=== PATIENT | female | born 1960 | race Caucasian/White ===

== ENCOUNTER 2024-02-24 06:05 | Outpatient (CLI) | payer MEDICARE, SELFPAY ==
--- NOTE | 2024-02-24 06:06 | CA_ITS ---
APPROVED REPORT EXAM: Comprehensive 2D, Doppler, and color-flow Echocardiogram Software Quality Specialist: Kaylene Contreras RT(R) Ht: 5 ft 6 in Wt: 152lbs BSA: 1.78 BP: 147/81 mmHg Indications: SOA, CAD, abn EKG, smoker, epicardial cyst on CT scan. 2D Dimensions Left Atrium 2.78 cm F: 2.7 - 3.8 LVOT 2.04 cm (M/F) 1.5-2.5 M-Mode Dimensions RVDd 1.67 cm (0.9-2.6) LVDd 4.45 cm (3.5-5.7) Ao Diam 2.40 cm (2.0-3.7) LVDs 3.34 cm (3.5-5.7) IVSd 0.91 cm (0.6-1.1) PWd 0.80 cm (0.6-1.1) EF (Teich) 49.60% FS 24.90% EDV (Teich) 90.10 mL ESV (Teich) 45.40 mL LV Diastology E Decel Time 231 (160-240 msec) E/A Ratio 1.2 MED E' 7.2 (>= 7 cm/sec) E'/MED E' Ratio 10.72 (<= 14) LAT E' 8.1 (>= 10 cm/sec) E/LAT E' Ratio 9.53 (<= 14) Mitral Valve MV E Max Rory. 77.0 (40-130 cm/s) MV A Velocity 64.0 (40-130 cm/s) E/A Ratio 1.20 MV Decel. Time 231 (160-240 ms) Left Ventricle The left ventricle is normal size. The left ventricular systolic function is normal. The left ventricular ejection fraction is within the normal range. There is increased LV wall thickness. There is normal LV segmental wall motion. The left ventricular diastolic function is normal. LVEF is 55%. Right Ventricle The right ventricle is not well visualized. Atria The left atrium size is normal. The right atrium is not well visualized. Aortic Valve The aortic valve is mildly thickened. There is no aortic valvular stenosis. No aortic regurgitation is present. Mitral Valve The mitral valve is normal in structure. No evidence of mitral valve stenosis. There is no mitral valve regurgitation noted. Tricuspid Valve The tricuspid valve leaflets are thin and pliable. Trace tricuspid regurgitation. There is insufficient TR jet to estimate RVSP. Pulmonic Valve The pulmonary valve is not well visualized. Great Vessels The aortic root is normal in size. The ascending aorta is normal in size. IVC is normal in size and collapses >50% with inspiration. Pericardium There is a small-sized, anterior pericardial effusion. Largest pocket measures 0.5 cm in diastole. No echo indications of tamponade. Other Information Study Quality: Technically Difficult Conclusion Technically difficult study due to poor accoustic windows. Normal LV systolic function. RA/RV not well visualized. No significant valvular stenosis or regurgitation. Small-sized, anterior pericardial effusion. Largest pocket measures 0.5 cm in diastole. No echo indications of tamponade. Electronically signed by : Maggy Diana MD 02/25/2024 14:03:29
--- NOTE | 2024-02-24 06:10 | NM_ITS ---
APPROVED REPORT Exam: Nuclear Stress Test Indication: SOB, High cholesterol, Tobacco use, Family history Patient Location: Outpatient Stress Tech: Tg GUZMÁN Tech:Candy Varma, ARRT, RT (R)(N) Ht: 5 ft 6 in Wt: 155 lbs Bra Size: B HR: 65 bpm BP: 172/74 mmHg BSA: 1.79 m2 TID: 1.05 BMI: 25.0 History: SOB, High cholesterol, Tobacco use, Family history Procedure: Patient received 0.4 mg of intravenous Lexiscan, resting heart rate 65 bpm, resting blood pressure 172/74 mmHg, with Lexiscan maximum heart rate achieved was 104 bpm which is % of the maximum predicted heart rate and blood pressure was 172/74 mmHg. With Lexiscan, patient denied any complaint of chest pain. Cardiac Stress and Resting SPECT Images: Cardiac Stress and Resting SPECT images were obtained using technetium 99m Myoview 28.3 mCi stress and 10.74 mCi at rest. Raw images demonstrate presence of radiotracer in the left subaxillary region, likely reflecting lymp node uptake. There is also significant soft tissue overlap with the cardiac borders. This may affec the diagnostic interpretation of the study findings. Resting and stress imaging in supine positions demonstrate a medium sized, moderate, fixed perfusion defect in the inferior LV wall. This is no longer visualized with prone stress imaging. Findings are suggestive of diaphragmatic attenuation. Gated imaging demonstrate normal global and regional LV systolic function. LVEF is calculated at 64%. Conclusion: Raw images demonstrate presence of radiotracer in the left subaxillary region, likely reflecting lymp node uptake. Further evaluation of possible lymphadenopathy is suggested. Diaphragmatic attenuation is present. No evidene of fixed or reversible perfusion defects. Gated imaging demonstrate normal global and regional LV systolic function. LVEF is calculated at 64%. Electronically signed by : Maggy Diana MD 02/24/2024 15:29:26
--- NOTE | 2024-02-24 06:10 | CA_ITS ---
APPROVED REPORT Exam: Pharmacologic Technologist: Tg Franklin, Ht: 5 ft 6 in Wt: 152 lbs BSA: 1.78 m2 HR: 57 bpm BP: 172/74 mmHg Rhythm: NSR Medical History Medications: Simvastatin,,,,, Albuterol,,,,, PaXIL,,,,, Atrovent,,,,, Stress Test Details Test: LEXISCAN Reason for pharmacologic stress test: physical limitation. HR Resting HR: 65 bpm Max Heart Rate (APMHR): 155 bpm Max HR Achieved: 104 bpm Target HR (85% APMHR): 132 bpm % of APMHR: 67 Recovery HR: 72 bpm BP Resting BP: 172.0/74.0 mmHg Max BP: 172.0/74.0 mmHg Recovery BP: 151.0/76.0 mmHg ECG Resting ECG: NSR, PRWP Anteriorly Stress ECG: No ST changes Arrhythmia: None Clinical Exercise duration: 04:03 min Highest Stage Achieved: Exercise capacity: 1.0 METs Stress ECG Conclusion Symptoms: No Chest Pain. Arrhythmias/Ectopy: None ST-T Changes: No significant ST changes Conclusion: Unremarkable Lexiscan stress test. Myoview images reported separately. Test Summary REST . . . . . . . Resting REST 29:54 . . 65 . 172/ 74 . . Stage 1 01:00 . . 71 . . . . Stage 2 01:00 . . 87 . . . . Stage 3 01:00 . . 84 . 133/ 70 . . Stage 4 01:00 . . 80 . 145/ 73 . . Stage 4 01:03 . . 81 . 145/ 73 . Stop exercise at 04:03 RECOVERY 01:00 . . 70 . 151/ 76 . . RECOVERY 01:12 . . 75 . 151/ 76 . . Electronically signed by : Maggy Diana MD 02/24/2024 15:19:58
[2024-02-24] MEDS: ISOTOPE MYOVIEW (PER STUDY) 1 DOSE IV (08:40)
[2024-02-24] MEDS: REGADENOSON 0.4MG/5ML SYRINGE 0.4 MG IV (08:40)
[2024-02-24] MEDS: SODIUM CHLORIDE 0.9% 10ML SYR (RAD ONLY) 10 ML IV ×2 (08:40)
== END 2024-02-24 23:59 | disposition home or self-care (01) ==
LOC: RAD 06:06
PROVIDERS: PCP Nurse Practitioner Family; Visit Provider Physician Assistant
DX: R93.89 Abnormal findings on diagnostic imaging of other specified body structures (principal); F17.200 Nicotine dependence, unspecified, uncomplicated; R06.09 Other forms of dyspnea; R94.31 Abnormal electrocardiogram [ECG] [EKG]; I25.10 Atherosclerotic heart disease of native coronary artery without angina pectoris
CPT/HCPCS: 78452; 93017; 93018; 93306; A9502; J2785

== ENCOUNTER 2024-04-07 09:00 | Outpatient (CLI) | payer MEDICARE, SELFPAY ==
--- NOTE | 2024-04-07 09:00 | MR_ITS ---
APPROVED REPORT Research Associate Molecular Biology: CLINICAL INDICATION Pericardial vs. epicardial cyst on CT chest imaging TECHNIQUE Image Acquisition: Cardiac magnetic resonance (CMR) was performed on Siemens Espree MRI 1.5T scanner. Software platform sequences were performed using the Siemens Search [employer] Culture MR B19 platform. A set of three-plane, low-resolution, large [id number] localizers were initially acquired. Then axial, coronal, sagittal TrueFISP, as well as axial HASTE images, were obtained. These were followed by gated TrueFISP breathold cinematic sequences obtained in the short axis with 8 mm slices and 2 mm gaps, 2-chamber (vertical long axis), 3-chamber, 4-chamber (horizontal long axis). A bolus of contrast was injected intravenously with first-pass sequences obtained in the short axis and four-chamber planes. After approximately 10 minutes, a TI machine feeder raw stock sequence was performed to determine the optimal TI time. Using the optimized TI time, delayed contrast enhancement segmented inversion???recovery TurboFLASH sequences were obtained in the short axis, 2-chamber, 3-chamber, and 4-chamber projections. 2D-velocity phase mapping was performed. Functional parameters were calculated by offline analysis on an independent workstation ([employer] Platform, [employer]). Contrast: ProHance??? (Gadoteridol) FINDINGS MORPHOLOGY AND FUNCTION Left ventricle: The left ventricle is normal in size. The indexed left ventricular end-diastolic volume (LVEDVi) is 45 ml/m2 (reference range 57-105 ml/m2 in males, 56-96 ml/m2 in females). Normal left ventricular systolic function is present. There is normal left ventricular wall thickness. There are no regional wall motion abnormalities noted. LVEF is calculated at 67.2% (reference range 57-77%). Right ventricle: The right ventricle is normal in size. The indexed right ventricular end-diastolic volume (RVEDVi) is 40 ml/m2 (reference range 61-121 ml/m2 in males, 48-112 ml/m2 in females). Normal right ventricular systolic function is present. RVEF is calculated at 60.1% (reference range 52-72% in males, 51-71% in females). Atria: The left atrium is normal in size. The maximum indexed left atrial volume is 20 ml/m2 (reference range 26-52 ml/m2 in males, 27-53 ml/m2 in females). The right atrium is normal in size. The maximum indexed right atrial volume is 20 ml/m2 (reference range 18-90 ml/m2). Aorta: The diameter of the aortic annulus is normal, measuring 26 mm (coronal view reference range 21-30 mm in males, 19-27 mm in females). The diameter of the aortic sinus is normal, measuring 30 mm (coronal view reference range 25-42 mm in males, 24-36 mm in females). The diameter of the sinotubular junction is normal, measuring 27 mm (coronal view reference range 18-32 mm in males, 18-28 mm in females). The diameters of the ascending and descending thoracic aorta are normal. Main pulmonary artery: The main pulmonary artery diameter is normal. Pericardium: The pericardial thickness is normal. The pericardial thickness measures 2.3 mm (normal < 4.0 mm). There is no pericardial effusion. VALVES The valvular morphologies in the visualized sequences appear normal. There is no significant valvular stenosis or regurgitation of the mitral, aortic, tricuspid, or pulmonic valve noted visually. Systolic anterior motion of the mitral valve is not visualized. Ratio of pulmonary to systemic flow, Qp:Qs ratio = 1.16 (normal < or = 1.2, hemodynamically significant shunt > 1.5), demonstrating no evidence of hemodynamically significant shunt. TISSUE CHARACTERIZATION Resting Perfusion: Normal myocardial blood flow at rest. No evidence of resting hypoperfusion. Myocardial Fibrosis and/or edema: Normal gadolinium kinetics are present. No evidence of late gadolinium enhancement is noted, consistent with absence of myocardial scarring, infarction, or necrosis. T2-weighted imaging demonstrates no evidence of myocardial edema or inflammation. Masses: There is a well-circumscribed, round mass measuring approximately 2 cm in diameter noted along the the LV apical wall towards the left diaphragmatic recess. The mass is slightly hyperintense on T1 and bright on T2 imaging, with no evidence of vascularization on perfusion analysis and no uptake with LGE. Tissue characterization is most consistent with pericardial cyst (possibly containing proteinaceous material in the setting of T1 hyperintensity). OTHER No other significant findings are noted. However, this exam is focused on the cardiac structure and function. IMPRESSION Normal LV size with normal LV systolic function. LVEDVi= 45 ml/m2 and LVEF= 67.2%. Normal RV size with normal RV systolic function. RVEDVi= 40 ml/m2 and RVEF= 60.1%. No atrial enlargement. No CMR evidence of myocardial scarring, infarction, or necrosis. No evidence of myocardial edema or inflammation. Perfusion analysis demonstrates normal blood flow at rest with no evidence of resting hypoperfusion. Ratio of pulmonary to systemic flow, Qp:Qs ratio = 1.16 6 (normal < or = 1.2, hemodynamically significant shunt > 1.5), demonstrating no evidence of hemodynamically significant shunt. Presence of well-circumscribed, round mass measuring approximately 2 cm in diameter noted along the the LV apical wall towards the left diaphragmatic recess. The mass is slightly hyperintense on T1 and bright on T2 imaging, with no evidence of vascularization on perfusion analysis and no uptake with LGE. Tissue characterization is most consistent with pericardial cyst (possibly containing proteinaceous material in the setting of T1 hyperintensity). The above CMR findings demonstrate normal biventricular systolic function. A pericardial cyst is incidentally noted. The pericardial cyst has no hemodynamic effect or evidence of anatomic compression, and therefore is considered a benign finding. Of note, there is no evidence of an epicardial cyst. COMPARISON None CRITICAL RESULT None COMMUNICATION Per this written report The findings of this cardiac MR were reviewed, reported, and signed by Will Diana MD ([employer]). Conclusion Electronically signed by : Maggy Diana MD 04/21/2024 01:34:07
[2024-04-07 09:20] LABS: Blood Urea Nitrogen 6 mg/dl (7-17); Estimated Glomerular Filt Rate 124 ml/min (>60); GFR (African American) 150 ML/MIN (>60)
--- NOTE | 2024-04-07 11:51 | CT_ITS ---
FINAL REPORT TECHNIQUE: Before and after the administration of intravenous contrast, axial images through the chest were performed by computed tomography.This study was performed with techniques to keep radiation doses as low as reasonably achievable, (ALARA). Individualized dose reduction techniques using automated exposure control or adjustment of mA and/or kV according to the patient's size were employed. CLINICAL HISTORY: lymphadenopathy left axillary/epicardial cyst COMPARISON: None FINDINGS: CT CHEST WITH AND WITHOUT CONTRAST: There is no axillary adenopathy. There is no hilar or mediastinal adenopathy. The heart size is normal, with note made of a pericardial cyst at the cardiac apex measuring 26 x 19 x 19 mm in size, nonenhancing after contrast administration.. There is no pericardial or pleural effusion. Limited images of the upper abdomen are unremarkable. No suspicious infiltrate or nodule identified. Changes of emphysema are present. IMPRESSION: Changes of emphysema are present. No thoracic or axillary adenopathy is present. 26 x 19 x 19 mm pericardial cyst at the cardiac apex, nonenhancing. Reviewed, Interpreted and Dictated by Fela Olsen MD Transcribed by Lili Villanueva Authenticated and [facility]
[2024-04-07] MEDS: GADOTERIDOL INJ 20ML SYRINGE 16 ML IV (11:57)
[2024-04-07] MEDS: SODIUM CHLORIDE 0.9% 10ML SYR (RAD ONLY) 10 ML IV ×2 (11:57→12:27)
[2024-04-07] MEDS: 0.9 % SODIUM CHLORIDE 50 ML VIAL 25 ML IV (12:00)
[2024-04-07] MEDS: IOPAMIDOL-370 (76%);100ML BOTTLE 75 ML IV (12:26)
== END 2024-04-07 23:59 | disposition home or self-care (01) ==
LOC: RAD 09:00
PROVIDERS: PCP Physician Assistant; Visit Provider Physician Assistant
DX: R93.89 Abnormal findings on diagnostic imaging of other specified body structures (principal); R06.09 Other forms of dyspnea; R94.31 Abnormal electrocardiogram [ECG] [EKG]; I25.10 Atherosclerotic heart disease of native coronary artery without angina pectoris; F17.200 Nicotine dependence, unspecified, uncomplicated; R59.0 Localized enlarged lymph nodes; Q24.8 Other specified congenital malformations of heart
CPT/HCPCS: 36415; 71270; 75561; 82565; 84520; A9576; Q9967

== ENCOUNTER 2025-01-19 06:14 | Day surgery (SDC) | payer MEDICARE, SELFPAY ==
[2025-01-18 15:48] VITALS: BMI 25.0
[2025-01-19 07:04] VITALS: BP 159/75; PULSE 60; RESP 18; TEMP 36.1; O2SAT 96
[2025-01-19] MEDS: PHENYLEPHRINE 2.5% OPHTH SOLN 2ML OP ×3 (07:05→07:15)
[2025-01-19] MEDS: CYCLOPENTOLATE 2% OPHTH SOLN 2ML BOTTLE OP ×3 (07:05→07:15)
[2025-01-19] MEDS: TETRACAINE 0.5% OPTH SOL 15ML OP ×3 (07:05→07:15)
[2025-01-19] MEDS: SODIUM CHLORIDE 0.9% 10ML FLUSH SYRINGE 10 ML IV ×2 (07:10→08:18)
[2025-01-19 08:18] VITALS: BP 167/78; PULSE 62; RESP 18; TEMP 36.7; O2SAT 98
[2025-01-19] MEDS: MIDAZOLAM 2MG/2ML VIAL 1 MG IV (08:18)
[2025-01-19 08:23] VITALS: BP 166/74; PULSE 61; RESP 18; TEMP 36.7; O2SAT 96
[2025-01-19] MEDS: TIMOLOL 0.5% OPTH SOLN 5ML OP (08:26)
[2025-01-19] MEDS: LIDOCAINE 1% PF 2ML VIAL 2 ML IJ (08:27)
[2025-01-19] MEDS: TOBRAMYCIN/DEX OPTH SUSP 2.5ML OP (08:27)
[2025-01-19 08:28] VITALS: BP 177/74; PULSE 57; RESP 18; TEMP 36.7; O2SAT 95
[2025-01-19 08:33] VITALS: BP 158/72; PULSE 52; RESP 18; TEMP 36.7; O2SAT 95
[2025-01-19 08:40] VITALS: BP 146/82; PULSE 63; RESP 16; TEMP 36.4; O2SAT 96
--- NOTE | 2025-01-19 11:02 | [facility].PROCNOTE ---
[facility] Procedure Note Date: 01/19/25 Time: 11:03 Procedure Note:: Preoperative Diagnosis: Cataract combined NS Cortical Complex [Right] Eye Postop diagnosis: same Operation: Microscopic phacoemulsification with intraocular lens implant [Right] Eye Specimen: None Blood Loss: None The patient was examined in the office with a complaint of poor vision in the [right] eye. The patient reports that this interferes with ADLs such as reading, watching TV and/or driving or the vision is like looking through a foggy haze and is very troubling. The patient was examined and found to have a visually significant cataract with best corrected vision of [20/400] by refraction and/or glare testing. Treatment options, risks and benefits were explained and the patient elected to have cataract surgery in an attempt to improve their vision. The patient had the eye anesthetized with topical tetracaine, the eye ways prepped and draped in the usual fashion for cataract surgery. A paracentesis and a temporal keratotomy were made. 0.2cc of 1% lidocaine PF was placed into the anterior chamber. And aqueous/viscoelastic exchange was done and a 360 degree capsulorexis was performed. Through hydrodissection and delineation with BSS on a cannula was done. The lens nucleus was phecoemulsified with CDE of [17.15]. Residual cortical material was removed using automated I&A The capsular bag was deepened with viscoelastica and a PCIOL was placed in the capsular bag with good centration and stability. Residual viscoelastic was removed using automated I&A. The keratotomy incision was hydrated with BSS on a cannula. The wound were checked and found to be water tight. IOP was checked digitally and adjusted as needed so as not to be too high. 1 drop of timolol 0.5%, ofloxacin, prednisolone acetate and ketorolac was instilled and eye shield taped over the eye. The patient was taken to recovery in good condition and will be seen postoperatively.
== END 2025-01-19 08:50 | disposition home or self-care (01) ==
PROVIDERS: PCP Nurse Practitioner Family; Visit Provider Ophthalmology
PROC: (CPT 66984; principal; 2025-01-19 08:30)
DX: H25.811 Combined forms of age-related cataract, right eye (principal); J44.9 Chronic obstructive pulmonary disease, unspecified; E78.5 Hyperlipidemia, unspecified; E73.9 Lactose intolerance, unspecified; F17.210 Nicotine dependence, cigarettes, uncomplicated; Z79.899 Other long term (current) drug therapy; Z98.42 Cataract extraction status, left eye
CPT/HCPCS: 66984; J2250; V2632

== ENCOUNTER 2025-05-04 10:24 | Outpatient (CLI) | payer MEDICARE, SELFPAY ==
--- NOTE | 2025-05-04 10:27 | MM_ITS ---
PROCEDURE INFORMATION: Exam: MG Bilateral Screening 3D Mammography Exam date and time: 05/04/2025 10:34 AM Age: 64 years old Clinical indication: Screening mammogram TECHNIQUE: Imaging protocol: Bilateral Screening tomosynthesis and 2D mammography including computer-aided detection (CAD) when performed. COMPARISON: 1. MG MAMM SCREENING 2D 3D 01/01/2024 1:01 PM 2. MG CATRINA DIAG UNILAT RT 2D 3D 10/23/2021 1:07 PM 3. MG MAMM SCREENING 2D 3D 10/09/2021 9:19 AM 4. MG MM SCREENING MAMMOGRAM 04/11/2020 9:26 AM FINDINGS: MAMMOGRAPHY: Breast composition: There are scattered areas of fibroglandular density. Mass: None. Architectural distortion: No new or suspicious architectural distortion. Calcifications: No new or suspicious calcifications are present Asymmetric density: No new or suspicious asymmetric density is present Skin thickening: None. Axillary adenopathy: None. IMPRESSION: No mammographic evidence of malignancy. Recommend annual screening mammography unless otherwise clinically indicated. ASSESSMENT: BI-RADS category 1: Negative.
--- OUTSIDE RECORDS SUMMARY | 2025-05-04 10:29 | XMS_ITS | Data Portability ---
Author Organization [facility] Address [address] [place] [address] Assessment Encounter Date Assessment Date Assessment LastModified by Organization Details LastModified Time 12/23/2023 12/23/2023 Medicare Preventive Services Check List reviewed and printed for patient. [email or web address] Not available 12/23/2023 10:50:05 02/26/2025 02/26/2025 Patient presente d to office today for their Medicare Annual Wellness Visit. Education was provided on healthy nutrition, including a diet rich in fruits and vegetables, minimizing simple carbohydrates, salt, and saturated fats. Encouraged regular cardiovascular exercise such as walking at least 30 minutes daily, 5 times per week. Emphasized preventive health measures and educated pt on fall prevention and community-based lifestyle interventions to help reduce health risks and promote healthy living. Medicare Preventive Services Check List reviewed and printed for patient. [email or web address] Not available 02/26/2025 10:09:09 Plan of Treatment Reminders Order Date Submit Date Provider Last Modified By Organization Details Last Modified Time Details Appointments None recorded. Lab HbA1c (hemoglobin A1c), blood 2024 025 [facility], [address], [address], [place], [address], 5 07:07:03 CBC w/ auto diff 2024 025 [facility], [address], [address], [place], [address], 5 07:07:02 TSH + free T4, serum 2024 025 [facility], [address], [address], [place], [address], 5 07:07:01 CMP, serum or plasma 2024 025 [facility], [address], [address], [place], [address], 5 07:07:02 lipid panel, serum 2024 025 DI[facility], [address], [address], [place], [address], 5 07:07:03 HbA1c (hemoglobin A1c), blood 2023 024 [facility], [address], [address], [place], [address], 4 07:08:47 CBC w/ auto diff 2023 024 [facility], [address], [address], [place], [address], 4 07:08:46 CMP, serum or plasma 2023 024 [facility], [address], [address], [place], [address], 4 07:08:46 lipid panel, serum 2023 024 [facility], [address], [address], [place], [address], 4 07:08:47 noninvasive colorectal cancer DNA + occult blood screening, QL, stool 2023 024 [facility], [address], [address], [place], [address], 4 11:24:14 hepatitis panel (A+B+C), acute, serum 2023 024 DI[facility], [address], [address], [place], [address], 4 07:08:45 Referral None recorded. Procedures None recorded. Surgeries None recorded. Imaging MAMMO, screening, digital, bilateral 2024 025 [facility] (Scheduling), [address], [place], [address], 5 04:06:01 MAMMO, screening, digital, bilateral - wants scheduled around February 172023 024 [facility], [address] [place], [address], 4 13:08:42 DEXA, vertebral fracture assessment - wants scheduled at a later date 2023 024 [facility], [address] [place], [address], 4 13:08:09 LDCT, chest, for lung cancer screening 2023 024 [facility], [address] [place], [address], 4 11:15:45 Medication Orders paroxetine 30 mg tablet 2024 025 [facility] [place], [address] [place] [address], [place], [address], 5 11:02:08 simvastatin 40 mg tablet 2024 025 [email or web address] [place], [address] [place] [address], [place], [address], 5 11:02:27 triamcinolo ne acetonide 0.1 % topical cream 2023 024 [facility], [address] [place] [address], [place], [address], 10:40:09 prednisone 20 mg tablet 2023 024 [facility] [place], [address] [place] [address], [place], [address], 11:42:41 Patient TargetsNo targets recorded. Patient Instructions Encounter Date Encounter Id Patient Instructions Last Modified By Organization Details Last Modified Time 12/23/2023 [id number] advance directives: care instructions efryman Not available 12/23/2023 11:30:14 learning about lung cancer screening efryman Not available 12/23/2023 11:30:14 learning about depression efryman Not available 12/23/2023 11:30:15 preventing falls : care instructions efryman Not available 12/23/2023 11:30:14 medicare preventive services guide efryman Not available 12/23/2023 11:30:15 learning about healthy weight efryman Not available 12/23/2023 11:30:14 Learning About Being Physically Active efryman Not available 12/23/2023 11:30:15 smoking cessatio n counseling, greater than 3 minutes up to 10 minutes efryman Not available 12/23/2023 11:30:15 02/26/2025 [id number] advance directives: care instructions efryman Not available 02/26/2025 11:02:05 body mass index: care instructions efryman Not available 02/26/2025 11:02:05 learning about depression efryman Not available 02/26/2025 11:02:05 preventing falls : care instructions efryman Not available 02/26/2025 11:02:05 medicare preventive services guide efryman Not available 02/26/2025 11:02:05 Reason for Referral None Reported. Results Created Date Observation Date Name Description Value Unit Range Abnormal Flag Note LastModifiedBy Organization Detail LastModifiedTime 12/23/19 24 12/24/2023 HAV, HBV, HCV hep A Ab, total Positi ve negati ve abnormal Comme nt: The HAV total antib rosemary assay detec ts both IgG and IgM but does not diffe renti ate betwe en them. A negat elke resul t sugge sts susce ptibi lity to infec tion. A posit elke resul t could be due to vacci natio n, previ ously resol lisbeth infec tion or activ e infec tion. Testi ng for HAV IgM shoul d be perfo rmed if activ e HAV infec tion is suspe cted. [facility] offer s profi les that will autom atica lly refle x posit elke HAV total antib rosemary resul ts to IgM (e.g. , panel #[id number] HAV Antib rosemary w/ Rfx). Not Available [facility] ([facility]) [address] [place], [address], 12/24/2023 07:08:45 12/23/1912/24/2023 HAV, HBV, HCV hep A Ab, IgM Negati ve negati ve Not Available [facility] ([facility]) [address] [place], [address], 12/24/2023 07:08:45 12/23/19 24 12/24/2023 HAV, HBV, HCV HBsAg screen Negati ve negati ve Not Available [facility] ([facility]) [address] [place], [address], 12/24/2023 07:08:45 12/23/1912/24/2023 HAV, HBV, HCV hep B surface Ab, qual Reacti ve Non React elke: Incon siste nt with immun ity, less than 10 mIU/m L React elke: Consi stent with immun ity, great er than 9.9 mIU/m L Not Available [facility] ([facility]) [address] [place], [address], 12/24/2023 07:08:45 12/23/1912/24/2023 HAV, HBV, HCV hep B core Ab, tot Negati ve negati ve Not Available [facility] ([facility]) [address] [place], [address], 12/24/2023 07:08:45 12/23/19 24 12/24/2023 HAV, HBV, HCV rfx to hbc IgM Commen t Refle x crite laisha was not met. Not Available [facility]) [address] [facility], [place], [address], 12/24/2023 07:08:45 12/23/19 24 12/24/2023 HAV, HBV, HCV interpretati on Commen t HBV Serol ogy Inter preta tion Chart ----- ----- ----- ----- ----- ----- ----- ----- ----- ----- ----- ----- ----- -- Inter preta tion HBsAg anti- HBs anti- HBc anti- HBc IgM ----- ----- ----- ----- ----- ----- ----- ----- ----- ----- ----- ----- ----- -- Rodriguez - David te prese nt: + David te absen t: - Test not indic ated: TNI ----- ----- ----- ----- ----- ----- ----- ----- ----- ----- ----- ----- ----- -- Maryana ptibl e (jonathan r infec moe and no evide nce - - - TNI of vacci natio n) ----- ----- ----- ----- ----- ----- ----- ----- ----- ----- ----- ----- ----- -- Immun e due to maureen giles lisbeth infec tion - + + TNI ----- ----- ----- ----- ----- ----- ----- ----- ----- ----- ----- ----- ----- -- Immun e due to vacci natio n - + - TNI ----- ----- ----- ----- ----- ----- ----- ----- ----- ----- ----- ----- ----- -- Acute Infec tion + - + + ----- ----- ----- ----- ----- ----- ----- ----- ----- ----- ----- ----- ----- -- Chron ic infec tion + - + - ----- ----- ----- ----- ----- ----- ----- ----- ----- ----- ----- ----- ----- -- Inter preta tion uncle ar* - - + +/- ----- ----- ----- ----- ----- ----- ----- ----- ----- ----- ----- ----- ----- -- *Mult iple possi bilit ies: resol lisbeth infec tion (most commo n); false - posit elke anti- HBc ([facility]pt[facility] le); low- level chron ic infec tion ; resol ving acute infec tion. Not Available [facility] ([facility]) [address] [facility], [place], [address], 12/24/2023 07:08:45 12/23/19 24 12/24/2023 HAV, HBV, HCV HCV Ab Non Reacti ve non reacti ve Not Available [facility] ([facility]) [address] [facility], [place], [address], 12/24/2023 07:08:45 12/23/19 24 12/24/2023 HAV, HBV, HCV interpretati on: Commen t Not infec moe with HCV unles s early or acute infec tion is suspe cted (whic h may be delay ed in an immun ocomp romis ed indiv idual ), or other evide nce exist s to indic ate HCV infec tion. Not Available [facility] ([facility]) [address] [facility], [place], [address], 12/24/2023 07:08:45 12/23/19 24 12/24/2023 CBC WITH DIFFE RENTI AL/PL ATELE T WBC 5.2 x10e3 /uL 3.4-10 .8 Not Available [facility] ([facility]) [address] [facility], [place], [address], 12/24/2023 07:08:45 12/23/19 24 12/24/2023 CBC WITH DIFFE RENTI AL/PL ATELE T RBC 4.95 x10e6 /uL 3.77-5 .28 Not Available [facility] ([facility]) [address] [facility], [place], [address], 12/24/2023 07:08:45 12/23/19 24 12/24/2023 CBC WITH DIFFE RENTI AL/PL ATELE T hemoglobin 14.6 g/dL 11.1-1 5.9 Not Available [facility] ([facility]) [address] [facility], [place], [address], 12/24/2023 07:08:45 12/23/19 24 12/24/2023 CBC WITH DIFFE RENTI AL/PL ATELE T hematocrit 42.8 % 34.0-4 6.6 Not Available [facility] ([facility]) [address] [place], [address], 12/24/2023 07:08:45 12/23/19 24 12/24/2023 CBC WITH DIFFE RENTI AL/PL ATELE T MCV 87 fL 79-97 Not Available [facility] ([facility]) [address] [facility], [place], [address], 12/24/2023 07:08:45 12/23/19 24 12/24/2023 CBC WITH DIFFE RENTI AL/PL ATELE T MCH 29.5 pg 26.6-3 3.0 Not Available [facility] ([facility]) [address] [facility], [place], [address], 12/24/2023 07:08:45 12/23/19 24 12/24/2023 CBC WITH DIFFE RENTI AL/PL ATELE T MCHC 34.1 g/dL 31.5-3 5.7 Not Available [facility] ([facility]) [address] [facility], [place], [address], 12/24/2023 07:08:45 12/23/19 24 12/24/2023 CBC WITH DIFFE RENTI AL/PL ATELE T RDW 12.8 % 11.7-1 5.4 Not Available [facility] ([facility]) [address] [facility], [place], [address], 12/24/2023 07:08:45 12/23/19 24 12/24/2023 CBC WITH DIFFE RENTI AL/PL ATELE T platelets 192 x10e3 /uL 150-45 0 Not Available [facility] ([facility]) [address] [facility], [place], [address], 12/24/2023 07:08:45 12/23/19 24 12/24/2023 CBC WITH DIFFE RENTI AL/PL ATELE T neutrophils 49 % not estab. Not Available [facility] ([facility]) [address] [facility], [place], [address], 12/24/2023 07:08:45 12/23/19 24 12/24/2023 CBC WITH DIFFE RENTI AL/PL ATELE T lymphs 40 % not estab. Not Available [facility] ([facility]) [address] [place], [address], 12/24/2023 07:08:45 12/23/19 24 12/24/2023 CBC WITH DIFFE RENTI AL/PL ATELE T monocytes 8 % not estab. Not Available [facility] ([facility]) [address] [facility], [place], [address], 12/24/2023 07:08:45 12/23/19 24 12/24/2023 CBC WITH DIFFE RENTI AL/PL ATELE T eos 1 % not estab. Not Available [facility] ([facility]) [address] [facility], [place], [address], 12/24/2023 07:08:45 12/23/19 24 12/24/2023 CBC WITH DIFFE RENTI AL/PL ATELE T basos 1 % not estab. Not Available [facility] ([facility]) [address] [place], [address], 12/24/2023 07:08:45 12/23/19 24 12/24/2023 CBC WITH DIFFE RENTI AL/PL ATELE T immature cells [employer] Not Available [facility] ([facility]) [address] [place], [address], 12/24/2023 07:08:45 12/23/19 24 12/24/2023 CBC WITH DIFFE RENTI AL/PL ATELE T neutrophils (absolute) 2.6 x10e3 /uL 1.4-7. 0 Not Available [facility] ([facility]) [address] [place], [address], 12/24/2023 07:08:45 12/23/19 24 12/24/2023 CBC WITH DIFFE RENTI AL/PL ATELE T lymphs (absolute) 2.1 x10e3 /uL 0.7-3. 1 Not Available [facility] ([facility]) [address] [facility], [place], [address], 12/24/2023 07:08:45 12/23/19 24 12/24/2023 CBC WITH DIFFE RENTI AL/PL ATELE T monocytes(ab solute) 0.4 x10e3 /uL 0.1-0. 9 Not Available [facility] ([facility]) [address] [facility], [place], [address], 12/24/2023 07:08:45 12/23/19 24 12/24/2023 CBC WITH DIFFE RENTI AL/PL ATELE T eos (absolute) 0.0 x10e3 /uL 0.0-0. 4 Not Available [facility] ([facility]) [address] [facility], [place], [address], 12/24/2023 07:08:45 12/23/19 24 12/24/2023 CBC WITH DIFFE RENTI AL/PL ATELE T baso (absolute) 0.1 x10e3 /uL 0.0-0. 2 Not Available [facility] ([facility]) [address] [facility], [place], [address], 12/24/2023 07:08:45 12/23/19 24 12/24/2023 CBC WITH DIFFE RENTI AL/PL ATELE T immature granulocytes 1 % not estab. Not Available [facility] ([facility]) [address] [place], [address], 12/24/2023 07:08:45 12/23/19 24 12/24/2023 CBC WITH DIFFE RENTI AL/PL ATELE T immature grans (abs) 0.0 x10e3 /uL 0.0-0. 1 Not Available [facility] ([facility]) [address] [facility], [place], [address], 12/24/2023 07:08:45 12/23/19 24 12/24/2023 CBC WITH DIFFE RENTI AL/PL ATELE T NRBC [employer] Not Available [facility] ([facility]) [address] [facility] [place], [address], 12/24/2023 07:08:45 12/23/19 24 12/24/2023 CBC WITH DIFFE RENTI AL/PL ATELE T hematology comments: [employer] Not Available [facility] ([facility]) [address] [facility] [place], [address], 12/24/2023 07:08:45 12/23/19 24 12/24/2023 COMP. METAB OLIC PANEL (14) glucose 91 mg/dL 70-99 Not Available [facility] ([facility]) [address] [place], [address], 12/24/2023 07:08:46 12/23/19 24 12/24/2023 COMP. METAB OLIC PANEL (14) BUN 7 mg/dL 8-27 below low normal Not Available [facility] ([facility]) [address] [facility] [place], [address], 12/24/2023 07:08:46 12/23/19 24 12/24/2023 COMP. METAB OLIC PANEL (14) creatinine 0.64 mg/dL 0.57-1 .00 Not Available [facility] ([facility]) [address] [place], [address], 12/24/2023 07:08:46 12/23/19 24 12/24/2023 COMP. METAB OLIC PANEL (14) eGFR 98 mL/mi n/1.7 3 >59 Not Available [facility] ([facility]) [address] [place], [address], 12/24/2023 07:08:46 12/23/19 24 12/24/2023 COMP. METAB OLIC PANEL (14) BUN/creatini ne ratio 11 12-28 below low normal Not Available [facility] ([facility]) [address] [place], [address], 12/24/2023 07:08:46 12/23/19 24 12/24/2023 COMP. METAB OLIC PANEL (14) sodium 138 mmol/ L 134-14 4 Not Available [facility] ([facility]) [address] [place], [address], 12/24/2023 07:08:46 12/23/19 24 12/24/2023 COMP. METAB OLIC PANEL (14) potassium 4.1 mmol/ L 3.5-5. 2 Not Available [facility] ([facility]) [address] [place], [address], 12/24/2023 07:08:46 12/23/19 24 12/24/2023 COMP. METAB OLIC PANEL (14) chloride 98 mmol/ L 96-106 Not Available [facility] ([facility]) [address] [place], [address], 12/24/2023 07:08:46 12/23/19 24 12/24/2023 COMP. METAB OLIC PANEL (14) carbon dioxide, total 27 mmol/ L 20-29 Not Available [facility] ([facility]) [address] [place], [address], 12/24/2023 07:08:46 12/23/19 24 12/24/2023 COMP. METAB OLIC PANEL (14) calcium 9.2 mg/dL 8.7-10 .3 Not Available [facility] ([facility]) [address] [place], [address], 12/24/2023 07:08:46 12/23/19 24 12/24/2023 COMP. METAB OLIC PANEL (14) protein, total 6.7 g/dL 6.0-8. 5 Not Available [facility] ([facility]) [address] [place], [address], 12/24/2023 07:08:46 06/10/20 24 12/24/2023 COMP. METAB OLIC PANEL (14) albumin 4.4 g/dL 3.9-4. 9 Not Available [facility] ([facility]) [address] [facility], [place], [address], 12/24/2023 07:08:46 12/23/19 24 12/24/2023 COMP. METAB OLIC PANEL (14) globulin, total 2.3 g/dL 1.5-4. 5 Not Available [facility] ([facility]) [address] [facility], [place], [address], 12/24/2023 07:08:46 12/23/19 24 12/24/2023 COMP. METAB OLIC PANEL (14) A/G ratio 1.9 Not Available [facility] ([facility]) [address] [facility], [place], [address], 12/24/2023 07:08:46 12/23/19 24 12/24/2023 COMP. METAB OLIC PANEL (14) bilirubin, total 0.4 mg/dL 0.0-1. 2 Not Available [facility] ([facility]) [address] [facility], [place], [address], 12/24/2023 07:08:46 12/23/19 24 12/24/2023 COMP. METAB OLIC PANEL (14) alkaline phosphatase 53 IU/L 44-121 Not Available [facility] ([facility]) [address] [facility], [place], [address], 12/24/2023 07:08:46 12/23/19 24 12/24/2023 COMP. METAB OLIC PANEL (14) AST (SGOT) 26 IU/L 0-40 Not Available [facility] ([facility]) [address] [facility], [place], [address], 12/24/2023 07:08:46 12/23/19 24 12/24/2023 COMP. METAB OLIC PANEL (14) ALT (SGPT) 16 IU/L 0-32 Not Available [facility] ([facility]) [address] [place], [address], 12/24/2023 07:08:46 12/23/19 24 12/24/2023 LIPID PANEL cholesterol, total 135 mg/dL 100-19 9 Not Available [facility] ([facility]) [address] [place], [address], 12/24/2023 07:08:47 12/23/19 24 12/24/2023 LIPID PANEL triglyceride s 79 mg/dL 0-149 Not Available [facility] ([facility]) [address] [place], [address], 12/24/2023 07:08:47 12/23/19 24 12/24/2023 LIPID PANEL HDL cholesterol 51 mg/dL >39 Not Available [facility] ([facility]) [address] [place], [address], 12/24/2023 07:08:47 12/23/19 24 12/24/2023 LIPID PANEL VLDL cholesterol shari 16 mg/dL 5-40 Not Available [facility] ([facility]) [address] [place], [address], 12/24/2023 07:08:47 12/23/19 24 12/24/2023 LIPID PANEL LDL chol calc ([facility]) 68 mg/dL 0-99 Not Available [facility] ([facility]) [address] [place], [address], 12/24/2023 07:08:47 12/23/19 24 12/24/2023 LIPID PANEL LDL calc comment: TNP Test not perfo rmed Not Available [facility] ([facility]) [address] [place], [address], 12/24/2023 07:08:47 12/23/19 24 12/24/2023 HEMOG LOBIN A1C hemoglobin A1C 6.0 % 4.8-5. 6 above high normal Predi abete s: 5.7 - 6.4 Diabe adriana: >6.4 Glyce sonam contr ol for adult s with diabe adriana: <7.0 Not Available [facility] ([facility]) [address] [facility], [place], [address], 12/24/2023 07:08:47 01/08/20 24 01/08/2024 COLOG UARD cologuard result reportable Positi ve negati ve abnormal POSIT ELKE TEST RESUL T. A posit elke Colog uard resul t shoul d be follo wed with a colon oscop y or visua l exami natio n of the colon . The karolina l value (refe rence range ) for this assay is negat elke. TEST DESCR IPTIO N: [place] site algor ithmi c david sis of stool DNA-b daquan coleman with hemog lobin immun oassa y. Quant itati ve value s of indiv idual bioma rkers are not repor table and are not assoc iated with indiv idual bioma rker resul t refer ence range s. Colog uard is inten ded for color ectal cance r scree misa of adult s of eithe r sex, 45 years or older , who are at [facility] for color ectal cance r (CRC) . Colog uard has been appro lisbeth for use by the [place]. FDA. The perfo rmanc e of Colog uard was estab lishe d in a cross secti onal study of [facility] adult s aged 50-84 . Colog uard perfo rmanc e in patie nts ages 45 to 49 years was estim ated by sub-g roup david sis of near- age group s. Colon oscop ies perfo rmed for a posit elke resul t may find as the most clini gunjan signi fican t lesio n: color ectal cance r [4.0% ], advan fazal adeno ma (incl uding sessi le mao moe polyp s great er than or equal to 1cm diame ter) [20%] or non- advan fazal adeno ma [31%] ; or no color ectal neopl chiquis [45%] . These estim ates are deriv ed from a prosp ectiv e cross -sect ional scree misa study of 0 indiv idual s at [place] [facility] risk for color ectal cance r who were scree anthony with both Colog uard and colon oscop y. (Mike Jordan. et al, N Engl J Med 2014; 370(1 4):12 86-12 97.) Colog uard may produ ce a false negat elke or false posit elke resul t (no color ectal cance r or preca ncero us polyp prese nt at colon oscop y follo w up). A negat elke Colog uard test resul t does not guara ntee the absen ce of CRC or advan fazal adeno ma (pre- cance r). The curre nt Colog uard scree misa inter claudio is every 3 years . (Amer ican Cance r Socie ty and U.S. Multi -Soci ety Task Force ). Colog uard perfo rmanc e data in a 0 patie nt pivot al study using colon oscop y as the refer ence metho d can be acces sed at the follo wing locat ion: www.e xactl abs.c om/re donny . Addit ional descr iptio n of the Colog uard test proce ss, warni ngs and preca ution s can be found at www.c gregg carrillod.c om. Not Available [facility] [address], [place], [address], 01/12/2024 11:24:14 02/27/20 25 02/27/2025 TSH+F REE T4 TSH 2.400 uIU/m L 0.450- 4.500 normal Not Available [facility] ([facility]) [address], [place], [address], 02/27/2025 07:07:01 02/27/20 25 02/27/2025 TSH+F REE T4 T4,free(dire ct) 1.23 NG/dL 0.82-1 .77 normal Not Available [facility] ([facility]) [address] [place], [address], 02/27/2025 07:07:01 02/27/2002/27/2025 CBC WITH DIFFE RENTI AL/PL ATELE T WBC 4.7 x10e3 /uL 3.4-10 .8 normal Not Available [facility] ([facility]) [address] [place], [address], 02/27/2025 07:07:02 02/27/2002/27/2025 CBC WITH DIFFE RENTI AL/PL ATELE T RBC 4.92 x10e6 /uL 3.77-5 .28 normal Not Available [facility] ([facility]) [address] [place], [address], 02/27/2025 07:07:02 02/27/2002/27/2025 CBC WITH DIFFE RENTI AL/PL ATELE T hemoglobin 14.8 g/dL 11.1-1 5.9 normal Not Available [facility] ([facility]) [address] [place], [address], 02/27/2025 07:07:02 02/27/2002/27/2025 CBC WITH DIFFE RENTI AL/PL ATELE T hematocrit 45.4 % 34.0-4 6.6 normal Not Available [facility] ([facility]) [address] [place], [address], 02/27/2025 07:07:02 02/27/2002/27/2025 CBC WITH DIFFE RENTI AL/PL ATELE T MCV 92 fL 79-97 normal Not Available [facility] ([facility]) [address] [place], [address], 02/27/2025 07:07:02 02/27/2002/27/2025 CBC WITH DIFFE RENTI AL/PL ATELE T MCH 30.1 pg 26.6-3 3.0 normal Not Available [facility] ([facility]) [address] [facility], [place], [address], 02/27/2025 07:07:02 02/27/20 25 02/27/2025 CBC WITH DIFFE RENTI AL/PL ATELE T MCHC 32.6 g/dL 31.5-3 5.7 normal Not Available [facility] ([facility]) [address] [facility], [place], [address], 02/27/2025 07:07:02 02/27/2002/27/2025 CBC WITH DIFFE RENTI AL/PL ATELE T RDW 12.6 % 11.7-1 5.4 Not Available [facility] ([facility]) [address] [facility], [place], [address], 02/27/2025 07:07:02 02/27/20 25 02/27/2025 CBC WITH DIFFE RENTI AL/PL ATELE T platelets 153 x10e3 /uL 150-45 0 normal Not Available [facility] ([facility]) [address] [facility], [place], [address], 02/27/2025 07:07:02 02/27/20 25 02/27/2025 CBC WITH DIFFE RENTI AL/PL ATELE T neutrophils 46 % not estab. normal Not Available [facility] ([facility]) [address] [facility], [place], [address], 02/27/2025 07:07:02 02/27/20 25 02/27/2025 CBC WITH DIFFE RENTI AL/PL ATELE T lymphs 44 % not estab. normal Not Available [facility] ([facility]) [address] [facility], [place], [address], 02/27/2025 07:07:02 02/27/20 25 02/27/2025 CBC WITH DIFFE RENTI AL/PL ATELE T monocytes 8 % not estab. normal Not Available [facility] ([facility]) [address] [facility], [place], [address], 02/27/2025 07:07:02 02/27/20 25 02/27/2025 CBC WITH DIFFE RENTI AL/PL ATELE T eos 1 % not estab. normal Not Available [facility] ([facility]) [address] [facility], [place], [address], 02/27/2025 07:07:02 02/27/20 25 02/27/2025 CBC WITH DIFFE RENTI AL/PL ATELE T basos 1 % not estab. normal Not Available [facility] ([facility]) [address] [facility], [place], [address], 02/27/2025 07:07:02 02/27/20 25 02/27/2025 CBC WITH DIFFE RENTI AL/PL ATELE T immature cells [employer]MENT [employer] Not Available [facility] ([facility]) [address] [place], [address], 02/27/2025 07:07:02 02/27/2002/27/2025 CBC WITH DIFFE RENTI AL/PL ATELE T neutrophils (absolute) 2.2 x10e3 /uL 1.4-7. 0 normal Not Available [facility] ([facility]) [address] [place], [address], 02/27/2025 07:07:02 02/27/2002/27/2025 CBC WITH DIFFE RENTI AL/PL ATELE T lymphs (absolute) 2.1 x10e3 /uL 0.7-3. 1 normal Not Available [facility] ([facility]) [address] [place], [address], 02/27/2025 07:07:02 02/27/20 25 02/27/2025 CBC WITH DIFFE RENTI AL/PL ATELE T monocytes(ab solute) 0.4 x10e3 /uL 0.1-0. 9 normal Not Available [facility] ([facility]) [address] [facility], [place], [address], 02/27/2025 07:07:02 02/27/20 25 02/27/2025 CBC WITH DIFFE RENTI AL/PL ATELE T eos (absolute) 0.1 x10e3 /uL 0.0-0. 4 normal Not Available [facility] ([facility]) [address] [facility], [place], [address], 02/27/2025 07:07:02 02/27/2002/27/2025 CBC WITH DIFFE RENTI AL/PL ATELE T baso (absolute) 0.0 x10e3 /uL 0.0-0. 2 normal Not Available [facility] ([facility]) [address] [facility], [place], [address], 02/27/2025 07:07:02 02/27/20 25 02/27/2025 CBC WITH DIFFE RENTI AL/PL ATELE T immature granulocytes 0 % not estab. Not Available [facility] ([facility]) [address] [facility], [place], [address], 02/27/2025 07:07:02 02/27/20 25 02/27/2025 CBC WITH DIFFE RENTI AL/PL ATELE T immature grans (abs) 0.0 x10e3 /uL 0.0-0. 1 Not Available [facility] ([facility]) [address] [facility], [place], [address], 02/27/2025 07:07:02 02/27/2002/27/2025 CBC WITH DIFFE RENTI AL/PL ATELE T NRBC [employer] Not Available [facility] ([facility]) [address] [facility], [place], [address], 02/27/2025 07:07:02 02/27/20 25 02/27/2025 CBC WITH DIFFE RENTI AL/PL ATELE T hematology comments: [employer]MENT [employer]ER Not Available [facility] ([facility]) [address] [place], [address], 02/27/2025 07:07:02 02/27/20 25 02/27/2025 COMP. METAB OLIC PANEL (14) glucose 87 mg/dL 70-99 normal Not Available [facility] ([facility]) [address] [place], [address], 02/27/2025 07:07:02 02/27/20 25 02/27/2025 COMP. METAB OLIC PANEL (14) BUN 5 mg/dL 8-27 below low normal Not Available [facility] ([facility]) [address] [place], [address], 02/27/2025 07:07:02 02/27/20 25 02/27/2025 COMP. METAB OLIC PANEL (14) creatinine 0.60 mg/dL 0.57-1 .00 normal Not Available [facility] ([facility]) [address] [place], [address], 02/27/2025 07:07:02 02/27/20 25 02/27/2025 COMP. METAB OLIC PANEL (14) eGFR 99 mL/mi n/1.7 3 >59 normal Not Available [facility] ([facility]) [address] [place], [address], 02/27/2025 07:07:02 02/27/20 25 02/27/2025 COMP. METAB OLIC PANEL (14) interpretati on: Commen t GFR estim ate at the follo wing level for >or=3 month s is class ified as follo ws: GFR WITH KIDNE Y DAMAG E WITHO UT KIDNE Y DAMAG E >or=9 0 Stage 1 Karolina l 60-89 Stage 2 Decr eased GFR 30-59 Stage 3 Stage 3 15-29 Stage 4 Stage 4 <15 (or dialy sis) Stage 5 Stage 5 Estim ated GFR will over estim ate true GFR if serum creat inine is risin g as in acute renal failu re and will under estim ate true GFR if serum creat inine is decli misa as in resol ving acute renal failu re. Addit ional infor jose armando alvarado may be found at www.k doqi. org. Not Available [facility] ([facility]) [address] [facility] [place], [address], 02/27/2025 07:07:02 02/27/20 25 02/27/2025 COMP. METAB OLIC PANEL (14) BUN/creatini ne ratio 8 12-28 below low normal Not Available [facility] ([facility]) [address] [facility] [place], [address], 02/27/2025 07:07:02 02/27/20 25 02/27/2025 COMP. METAB OLIC PANEL (14) sodium 137 mmol/ L 134-14 4 normal Not Available [facility] ([facility]) [address] [facility] [place], [address], 02/27/2025 07:07:02 02/27/20 25 02/27/2025 COMP. METAB OLIC PANEL (14) potassium 4.3 mmol/ L 3.5-5. 2 normal Not Available [facility] ([facility]) [address] [facility] [place], [address], 02/27/2025 07:07:02 02/27/20 25 02/27/2025 COMP. METAB OLIC PANEL (14) chloride 97 mmol/ L 96-106 normal Not Available [facility] ([facility]) [address] [facility] [place], [address], 02/27/2025 07:07:02 02/27/20 25 02/27/2025 COMP. METAB OLIC PANEL (14) carbon dioxide, total 26 mmol/ L 20-29 normal Not Available [facility] ([facility]) [address] [place], [address], 02/27/2025 07:07:02 02/27/2002/27/2025 COMP. METAB OLIC PANEL (14) calcium 9.5 mg/dL 8.7-10 .3 normal Not Available [facility] ([facility]) [address] [place], [address], 02/27/2025 07:07:02 02/27/2002/27/2025 COMP. METAB OLIC PANEL (14) protein, total 6.9 g/dL 6.0-8. 5 normal Not Available [facility] ([facility]) [address] [place], [address], 02/27/2025 07:07:02 02/27/2002/27/2025 COMP. METAB OLIC PANEL (14) albumin 4.5 g/dL 3.9-4. 9 normal Not Available [facility] ([facility]) [address] [place], [address], 02/27/2025 07:07:02 02/27/2002/27/2025 COMP. METAB OLIC PANEL (14) globulin, total 2.4 g/dL 1.5-4. 5 Not Available [facility] ([facility]) [address] [facility] [place], [address], 02/27/2025 07:07:02 02/27/2002/27/2025 COMP. METAB OLIC PANEL (14) bilirubin, total 0.3 mg/dL 0.0-1. 2 normal Not Available [facility] ([facility]) [address] [place], [address], 02/27/2025 07:07:02 02/27/2002/27/2025 COMP. METAB OLIC PANEL (14) alkaline phosphatase 47 IU/L 44-121 normal Not Available [facility] ([facility]) [address] [place], [address], 02/27/2025 07:07:02 02/27/20 02/27/2025 COMP. METAB OLIC PANEL (14) AST (SGOT) 25 IU/L 0-40 normal Not Available [facility] ([facility]) [address] [facility] [place], [address], 02/27/2025 07:07:02 02/27/20 25 02/27/2025 COMP. METAB OLIC PANEL (14) ALT (SGPT) 16 IU/L 0-32 normal Not Available [facility] ([facility]) [address] [facility] [place], [address], 02/27/2025 07:07:02 02/27/20 25 02/27/2025 LIPID PANEL cholesterol, total 138 mg/dL 100-19 9 normal Not Available [facility] ([facility]) [address] [place], [address], 02/27/2025 07:07:03 02/27/20 25 02/27/2025 LIPID PANEL triglyceride s 122 mg/dL 0-149 normal Not Available [facility] ([facility]) [address] [place], [address], 02/27/2025 07:07:03 02/27/20 25 02/27/2025 LIPID PANEL HDL cholesterol 49 mg/dL >39 normal Not Available [facility] ([facility]) [address] [place], [address], 02/27/2025 07:07:03 02/27/20 25 02/27/2025 LIPID PANEL VLDL cholesterol shari 22 mg/dL 5-40 Not Available [facility] ([facility]) [address] [place], [address], 02/27/2025 07:07:03 02/27/20 25 02/27/2025 LIPID PANEL LDL chol calc ([facility]) 67 mg/dL 0-99 Not Available [facility] ([facility]) [address] [place], [address], 02/27/2025 07:07:03 02/27/2002/27/2025 LIPID PANEL LDL calc comment: [employer]ER Not Available [facility] ([facility]) [address] [facility], [place], [address], 02/27/2025 07:07:03 02/27/2002/27/2025 HEMOG LOBIN A1C hemoglobin A1C 5.8 % 4.8-5. 6 above high normal Predi abete s: 5.7 - 6.4 Diabe adriana: >6.4 Glyce sonam contr ol for adult s with diabe adriana: <7.0 Not Available [facility] ([facility]) [address] [facility] [address], [place], [address], 02/27/2025 07:07:03 01/03/20 24 01/01/2024 DEXA, verte bral fract ure asses sment No observ ation record ed. [facility] [address] [place], [address], 01/06/2024 11:41:39 01/03/20 24 01/01/2024 MAMMO , scree misa, digit al, bilat eral No observ ation record ed. [facility] (Central Scheduling) [address] [place], [address], 01/06/2024 11:41:39 01/24/20 24 01/21/2024 LDCT, chest , for lung cance r scree misa No observ ation record ed. [facility] (Medical Records) [address] [place], [address], 01/30/2024 08:12:52 02/24/20 24 02/24/2024 cardi ac stres s test No observ ation record ed. [facility] [address], [place], [address], 02/24/2024 16:17:35 02/24/20 24 02/24/2024 NM, myoca rdial perfu shy scan, w/ stres s No observ ation record ed. [facility] [address], [place], [address], 02/24/2024 16:16:59 02/25/20 24 02/24/2024 US, doppl er echoc ardio gram No observ ation record ed. [facility] [address], [place], [address], 02/25/2024 14:50:04 Result Notes None recorded. Problems Name Problem SNOMED Code Status Onset Date Resolution Date Notes Provider Name and Address Organization Details Recorded Time Asthma 668347830 Active 2017 Lavinia Pittman, [employer]GRAPHIC PRESS OPERATOR [address], [place], [address], [place] [facility] 3 16:54:32 Chronic obstructive pulmonary disease 01000205 Active 2017 Lavinia Pittman APRN [address], [place], [address], [place] [facility] 3 16:54:18 Environmental allergy 875798550 Active 2017 Joy Heath null, [place] - [facility] 8 13:53:54 Menopausal syndrome 874988496 Active 2017 Joy Heath null, [place] - [facility] 8 13:55:50 Osteoarthritis 307932818 Active 2017 Lavinia Pittman F[employer]OGRAPHIC PRESS OPERATOR [address], [place], [address], [place] [facility] 3 16:54:22 Scoliosis deformity of spine 247547155 Active 2017 Lavinia Pittman, FLEXOGRAPHIC PRESS OPERATOR [address], [place], [address], [place] [facility] 3 16:54:24 Lyme disease 82769207 Active 2022 Margy Tinajero null, [place] - [facility] 3 09:52:59 Prediabetes 642475680 Active 2023 Lavinia Pittman, FLEXOGRAPHIC PRESS OPERATOR [address], [place], [address], [place] [facility] 4 11:28:12 Hyperlipidemia 50908109 Active 2023 Lavinia Pittman APRN [address], [place], [address], [place] [facility] 4 11:29:28 Problem Notes None recorded. Procedures Surgical History Date Name Laterality Status Provider Name and Address Organization Details Recorded Time 5 Advance Care Planning completed Margy Natalies [place] - [facility] 02/26/2025 10:09:09 5 Functional Status Assessed completed Margy Natalies [place] [facility] 02/26/2025 10:09:09 5 surgery of cataract of right eye completed Margy Natalies [place] [facility] 02/26/2025 10:42:53 4 Jordan Bandage Application completed Lavinia Pittman APRN [address], [place], [address], [place] [facility] 01/07/2024 13:36:20 4 Advance Care Planning completed Margy Natalies [place] [facility] 12/23/2023 10:50:05 4 Functional Status Assessed completed Margy Natalies [place] [facility] 12/23/2023 10:50:05 5 Cataract Surgery completed Joy Heath [place] [facility] 04/17/2018 14:07:22 8 completed Joy Ivana [place] - [facility] 2017 13:56:18 colonoscopy completed Margy Natalies [place] [facility] 12/23/2023 10:59:31 Imaging Results None recorded. Procedure Notes None recorded. Medical Equipment None Reported. Allergies Allergen ID Allergen Name Allergen Category Reaction Reaction Severity Criticality Documentation Date Start Date Code Code System Note Provider Name and Address Organization Details Recorded Time 214015 lactulose medicatio n Not available Not available Not available 12/18/2022 6218 RxNorm Margy Tanvi [place], [place] - [facility] 3 16:35:10 Medications Name Sig Start Date Stop Date Status Note LastModified by Organization Details LastModified Time doxycycline hyclate 100 mg capsule TAKE ONE (1) CAPSULE TWICE A DAY BY ORAL ROUTE FOR 7 DAYS. 09/22 completed Not Available Not Available Not Available ofloxacin 0.3 % eye drops INSTILL 1 DROP TO OPERATIVE EYE 4 TIMES DAILY FOR 7 DAYS 02/26 completed Not Available Not Available Not Available Claritin 10 mg tablet Take 1 tablet every day by oral route as needed. active Not Available Not Available No t Available prednisone 20 mg tablet TAKE ONE (1) TABLET TWICE A DAY BY ORAL ROUTE FOR FIVE (5) DAYS. 02/03 completed Not Available Not Available Not Available aspirin 81 mg tablet,smitha yed release Take 1 tablet every day by oral route. 12/15 completed Not Available Not Available Not Available doxycycline monohydrate 100 mg tablet TAKE 1 TABLET BY MOUTH EVERY 12 HOURS FOR 14 DAYS 01/06 completed Not Available Not Available Not Available triamcinolo ne acetonide 0.1 % topical cream APPLY A THIN LAYER TO THE AFFECTED AREA(S) BY TOPICAL ROUTE TWO (2) TIMES PER DAY 02/26 completed Not Available Not Available Not Available simvastatin 40 mg tablet Take 0.5 tablets every day by oral route at bedtime for 30 days. 2024 active Not Available Not Available Not Avai lable ketorolac 0.5 % eye drops STARTING 3 DAYS BEFORE SURGERY USE 1 DROP IN THE OPERATIVE EYE 4 TIMES A DAY FOR 10 DAYS THEN DECREASE TO TWICE A DAY FOR 14 DAYS 02/26 completed Not Available Not Available Not Available prednisolon e acetate 1 % eye drops,suspe nsion INSTILL 1 DROP TO OPERATIVE EYE 4 TIMES DAILY FOR 7 DAYS THEN DECREASE TO TWICE A DAY FOR 14 DAYS 02/26 completed Not Available Not Available Not Available paroxetine 30 mg tablet Take 0.5 tablets every day by oral route. 2024 active Not Available Not Available Not Avai lable simvastatin 20 mg tablet TAKE ONE (1) TABLET BY MOUTH EVERY NIGHT AT BEDTIME 02/26 completed Not Available Not Available Not Available Benadryl 25 mg capsule Take 1 capsule every day by oral route as needed. active Not Available Not Available No t Available Atrovent HFA 17 mcg/actuati on aerosol inhaler Inhale 2 puffs 4 times a day by inhalatio n route. active Not Available Not Available No t Available ProAir HFA 90 mcg/actuati on aerosol inhaler Inhale 2 puffs every 4 hours by inhalatio n route. active Not Available Not Available No t Available Vitals Date Recorded Body height Body mass index (BMI) Body weight Respiratory rate Pain severity - 0-10 verbal numeric rating [Score] - Reported Heart rate Oxygen saturation Oxygen saturation in Arterial blood by Pulse oximetry Systolic And Diastolic Provider Name and Address Organization Details Last Updated DateTime 4 167.01 cm 25.4 kg/m2 38502.4 1 g 18 /min 0 85 /min 95 % 95 % 136/80 mm[Hg] Mara Cueva [place] - [facility] 4 09:21:27 Date Recorded Body height Body mass index (BMI) Body weight Body temperature Respiratory rate Heart rate Oxygen saturation Oxygen saturation in Arterial blood by Pulse oximetry Systolic And Diastolic Provider Name and Address Organization Details Last Updated DateTime 4 167.01 cm 25 kg/m2 93316.2 2 g 97.9 [degF] 18 /min 74 /min 95 % 95 % 152/84 mm[Hg] Margy Stears [place] - [facility] 4 10:54:06 Date Recorded Body height Body mass index (BMI) Body weight Body temperature Heart rate Oxygen saturation Oxygen saturation in Arterial blood by Pulse oximetry Respiratory rate Pain severity - 0-10 verbal numeric rating [Score] - Reported Systolic And Diastolic Provider Name and Address Organization Details Last Updated DateTime 4 167.01 cm 24.9 kg/m2 02895.6 3 g 97 [degF] 84 /min 96 % 96 % 18 /min 0 160/90 mm[Hg] Mara Cueva [place] - [facility] 4 13:18:28 Date Recorded Body height Respiratory rate Body mass index (BMI) Body weight Heart rate Oxygen saturation Oxygen saturation in Arterial blood by Pulse oximetry Body temperature Systolic And Diastolic Provider Name and Address Organization Details Last Updated DateTime 4 167.01 cm 18 /min 25.2 kg/m2 54120.8 2 g 78 /min 96 % 96 % 97.6 [degF] 164/86 mm[Hg] Margy Stears [place] - [facility] 4 09:53:18 Date Recorded Body height Body mass index (BMI) Body weight Heart rate Oxygen saturation Oxygen saturation in Arterial blood by Pulse oximetry Respiratory rate Body temperature Systolic And Diastolic Provider Name and Address Organization Details Last Updated DateTime 5 167.01 cm 24.2 kg/m2 85047.2 6 g 72 /min 97 % 97 % 18 /min 97.9 [degF] 136/82 mm[Hg] Margyalejandra Tinajero [place] - [facility] 5 10:38:56 Social History Question Answer Notes LastModified by Organizat ion Details LastModified Time Tobacco Smoking Status Current Every Day Smoker Joy Heath [place], [place] - [facility] 04/17/2018 14:01:24 Do You Have An Advance Directive? No Information not available 04/17/2018 Are You Blind Or Do You Have Difficulty Seeing? No Wears Bifocals Information not available 12/23/2023 What Is Your Level Of Caffeine Consumption? Moderate Information not available 04/17/2018 How Much Tobacco Do You Chew? None Information not available 04/17/2018 Are You Deaf Or Do You Have Serious Difficulty Hearing? No Information not available 04/17/2018 What Type Of Diet Are You Following? REGULAR Information not available 04/17/2018 Which Illicit Or Recreational Drugs Have You Used? None Information not available 04/17/2018 What Is The Highest Grade Or Level Of School You Have Completed Or The Highest Degree You Have Received? [id number] Information not available 04/17/2018 How Many Days Of Moderate To Strenuous Exercise, Like A Brisk Walk, Did You Do In The Last 7 Days? 5 Information not available 04/17/2018 On Those Days That You Engage In Moderate To Strenuous Exercise, How Many Minutes, On Average, Do You Exercise? 60 Information not available 04/17/2018 Have There Been Any Changes To Your Family Or Social Situation? No Information not available 12/18/2022 How Hard Is It For You To Pay For The Very Basics Like Food, Housing, Medical Care, And Heating? [id number] Information not available 04/17/2018 What Is The Fluoride Status Of Your Home? Unknown Information not available 12/18/2022 Hard Of Hearing Or Deaf In One Or Both Ears? No Information not available 04/17/2018 Legally Blind In One Or Both Eyes? No Information not available 04/17/2018 Live Alone Or With Others? Alone Information not available 04/17/2018 Do You Have A Medical Power Of Tax Agent? No Information not available 12/18/2022 What Was The Date Of Your Most Recent Tobacco Screening? 02/26/2025 Information not available 02/26/2025 How Many Children Do You Have? 3 Information not available 04/17/2018 What Is Your Current Pack Years? 30ormorepack years Information not available 12/18/2022 What Is Your Relationship Status? Twice Information not available 12/18/2022 Seat Belts Used Routinely Yes Information not available 04/17/2018 Smoke Alarm In Home Yes Information not available 04/17/2018 Do You Have Smoke And Carbon Monoxide Detectors In Your Home? Yes Information not available 12/18/2022 At What Age Did You Start Smoking Tobacco? 22 Information not available 12/18/2022 Are You Passively Exposed To Smoke? Yes Information not available 04/17/2018 How Much Tobacco Do You Smoke? 1 PPD Information not available 04/17/2018 Do You Use Sunscreen Routinely? No Information not available 04/17/2018 Has Tobacco Cessation Counseling Been Provided? No Information not available 12/18/2022 How Many Years Have You Smoked Tobacco? 42 In 2023 Information not available 02/26/2025 Do You Have Difficulty Walking Or Climbing Stairs? No Information not available 04/17/2018 Sex: Female Functional Status Question Answer Note LastModified by Organizat ion Details LastModified Time Do you use any illicit or recreational drugs? No Information not available 12/18/2022 Do you or have you ever used any other forms of tobacco or nicotine? No Information not available 12/18/2022 What is your level of alcohol consumption? None Information not available 04/17/2018 Are you currently employed? No Information not available 12/18/2022 Do you have transportation difficulties? No Information not available 12/18/2022 Are you able to walk independently without assistance or assistive devices? YESWOREST Information not available 04/17/2018 Do you have difficulty doing errands alone? No Information not available 04/17/2018 Are you able to care for yourself independently? 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 No Information not available 04/17/2018 What is your exercise level? Occasional Information not available 04/17/2018 Mental Status Question Answer Note LastModified by Organizat ion Details LastModified Time Do you feel stressed (tense, restless, nervous, or anxious, or unable to sleep at night)? [id number] Information not available 04/17/2018 Do you have difficulty concentrating, remembering or making decisions? No Information no t available 04/17/2018 Family History Relationship Description Onset Age of this Age Resolved Age Notes LastModified by Organization Details LastModified Time Mother Diabetes mellitus mstacy Not available 2017 13:58:52 Mother Essential hypertension mstacy Not available 10/2017 14:00:25 Brother Aneurysm mstacy Not available 04/17/2018 13:59:11 Brother Malignant neoplasm of pharynx mstacy Not available 2017 13:59:22 Brother Essential hypertension mstacy Not available 10/2017 14:00:25 Sister Malignant neoplastic disease mstacy Not available 2017 13:59:31 Sister Congestive heart failure mstacy Not available 2017 13:59:40 Sister Diabetes mellitus mstacy Not available 2017 13:59:44 Sister Essential hypertension mstacy Not available 10/2017 14:00:25 Father Cerebrovascu lar disease mstacy Not available 10/2017 14:00:01 Father Essential hypertension mstacy Not available 10/2017 14:00:25 Medical History Condition Response Chicken Pox Y Gynecological History Statement/Question Response Abnormal Pap N If Post Menopausal, Age at Menopause 43 Date of Last Colonoscopy Date of Last Mammogram Most Recent Bone Density Menses Monthly N Date of Last Pap Smear Most Recent Mammogram LMP Unknown 07/15/2007 Obstetrics History GPAL:G 3 P 3 0 0 3 Type Value Full Term 3 Living 3 Total 3 Immunizations Vaccine Type Date Status Note Provider Name and Address Organization Details Recorded Time Td(adult) unspecified formulation 004 completed Not Available [facility] 02/26/2025 10:00:09 Tdap 014 completed Not Available [facility] 02/26/2025 10:00:09 zoster recombinant 019 completed Not Available [facility] 02/26/2025 10:00:09 COVID-19 vaccine, vector-nr, [id number], PF, 0.5 mL 021 completed Not Available [facility] 02/26/2025 10:00:09 Pneumococcal conjugate PCV20, polysaccharide [id number] conjugate, adjuvant, PF 025 cancelled patient objection Lavinia Pittman APRN [address], [place], [address], [place] [facility] 02/26/2025 11:02:27 zoster recombinant 025 cancelled patient objection Lavinia Pittman APRN [address], [place], [address], [place] [facility] 02/26/2025 11:02:27 Tdap 025 cancelled patient objection Lavinia Pittman APRN [address], [place], [address], [place] [facility] 02/26/2025 11:02:27 Influenza, split virus, quadrivalent, preservative 018 completed Not Available [facility] 08/01/2019 03:55:23 HepB-CpG 023 completed Margy Stears null[place] [facility] 09/23/2023 11:32:21 HepB-CpG 023 completed Margy Stears [place] [facility] 09/23/2023 11:32:21 Influenza, split virus, quadrivalent, PF 023 completed Margy Stears [place] [facility] 09/23/2023 11:32:21 Past Encounters Encounter ID Performer Location Encounter Start Date Encounter Closed Date Diagnosis/Indication Diagnosis SNOMED-CT Code Diagnosis ICD10 Code Diagnosis IMO Codes Diagnosis Note [id number] MD Jennifer Bernal [facility] [address] [place] [address] 04/17/2018 13:03:24 04/17/2018 14:52:27 Influenza vaccine needed [id number] 106 Z23 Chronic ob structive pulmonary disease 85457297 J44.9 Osteoarthritis 342502984 M19.90 [id number] [facility] [address] 12/18/2022 15:53:03 12/18/2022 17:11:17 Tick bite 42503452 W57.XXXA hold choles med while on antibiotic Insect bite reaction 402 219377 T63.481A [id number] [facility] [address] 09/23/2023 11:27:20 09/23/2023 11:45:53 Contusion of head 533165512 S00.93XA monitor for any changesif any symptoms go to ed asapice [id number] [facility] [address] 12/16/2023 09:10:46 12/16/2023 09:52:33 Abscess 568504032 L02.[address] gandhi in [place]- he will see pt- sent pt over [facility] eval [id number] [facility] [address] 12/23/2023 10:23:43 12/23/2023 11:46:36 Adult health examination 782734253 Z00.00 Depression screening 171 684850 Z13.31 A depression screening was completed via a standardiz ed screening tool. 5 minutes were spent discussing depression screening results and risk factors. Examinatio n of blood pressure 004808108 Z01.30 Diet education 44476873 Z71.3 Counseling 337061768 Z71 .82 Exercise counseling . Patient encouraged to exercise 30 minutes 5 days a week. At [facility] ed risk for falls 125432831 Z91.81 STEADI FAST screening score of __2___. Advance care planning 71 8665886 Z71.89 Finding of body mass index 312448680 Z68.25 25 Screening mammography 24 573810 Z12.31 Screening for malignant neoplasm of respiratory tract 789279500 Z12.2 Nicotine d ependence with current use 210152342 F17.210 Current tobacco user Former hea vy tobacco smoker 6918326110 18735 Z87.891 smokes daily Screening for malignant neoplasm of colon 806514046 Z12.11 Postmenopausal state 764 94489 Z78.0 Z13.820 Z01.419 HIV screen ing declined 7144103315 51050 Z53.20 Hepatitis C screening 41 6479709 Z11.59 Chronic ob structive pulmonary disease 89294666 J44.9 Osteoarthritis 613597011 M19.90 Scoliosis deformity of spine 453368431 M41.9 Prediabetes 024101013 R7 3.03 Hyperlipidemia 04288693 E78.5 History of nicotine dependence 5150559376 29546662 Z87.869 [id number] Lavinia Pittman [address] [address] 01/07/2024 13:03:20 01/07/2024 13:35:30 Osteoarthritis 493932393 M19.90 pt wants to wait on xray and work up at this timeace wrap appliedele vateicensa id/tylenol for painreturn if symptoms worsen or do not improve [id number] Lavinia Pittman [address] [address] 02/04/2024 09:36:53 02/04/2024 10:24:12 Contact dermatitis 16958301 L25.9 benadryl otcdo not take that brand again. go back to the original brandif symptoms worsen or no improvemen t return [id number] Lavinia Pittman [address] [address] 02/26/2025 09:45:55 02/26/2025 11:21:14 Adult health examination 875623087 Z00.00 Depression screening 171 650050 Z13.31 A depression screening was completed via a standardiz ed screening tool. 5 minutes were spent discussing depression screening results and risk factors. Examinatio n of blood pressure 137512651 Z01.30 Diet education 25491394 Z71.3 Counseling 367567986 Z71 .82 Exercise counseling . Patient encouraged to exercise 30 minutes 5 days a week. At [facility] ed risk for falls 408917144 Z91.81 STEADI FAST screening score of ___0__. Advance care planning 71 9274117 Z71.89 Menopausal syndrome 1237 08118 N95.9 med refilled Hyperlipidemia 82394697 E78.5 labsmed refilled Normal weight 48485136 Z 68.24 8297037289 24.2 Pneumococc al vaccination declined 679530892 Z28.21 14652322 Lung cance r screening declined 3419012435 4848646 Z53.[address] vaccination declined 1582465119 102 Z28.21 2855989615 Tetanus di phtheria and acellular pertussis vaccination declined 1898409977 7501143 Z28.21 4820331599 Prediabetes 130707517 R7 3.03 labs Screening mammography 24 630751 Z12.31 8577450 Health Concerns Section Related Observation LastModified by Organization Detai ls LastModified Time None Recorded Concern Status LastModified by Organization Details LastModified Time None Recorded Advance Directives Directive N: Payers Insurance Date Sequence Insurance Name Policy Number Policy Oneill Covered Member ID Oneill Member ID Guarantor Name 02/23/2025 [place] Marilu Torres [id number] Marilu Torres 04/28/2025 1 [place]MED[place]ARE [place]PLACEMENT HMO) [id number] Marilu Torres [id number] Marilu Torres 01/07/2024 2 () Marilu Torres [id number] Marilu Torres Notes Date Note Type Note Provider Name and Address Organization Details Recorded Time 12/16/2023 text/html ROS as noted in the HPI 63 yr old female presents for a boil to left lower eye.that keeps getting bigger and sore Lavinia Pittman, [employer]PERATOR [address], [place], [address], [place] [facility] 12/16/2023 09:55:55 12/23/2023 text/html Medicare Annual Wellness VisitReported by PatientSocial/Behavior al HistoryFor diet and nutrition, patient reportshigh caloric intakeandhigh carbohydrate meals(eats what she wants). For physical activity, patient reportsdoes not exercise on a regular basisanddecreased physical activity. For fracture risk, patient reportsno history of fractures,no recent explained fracture,no sudden unexplained fractures, andno previous musculoskeletal injuries.Mental Status:For depression risk, patient reportsnever feels sad, empty, or tearful,no loss of interest in activities,no significant changes in weight,no sleep disturbances or insomnia,no agitation,no loss of energy,no feelings of worthlessness or guilt,no thoughts of suicide,no history of depression, andno history of mood disorders. For orientation, patient reportsno disorientation to time (around 11),no disorientation to date (12-23-23), andno disorientation to place (dr. morrison). For concentration and memory, patient reportsno decreased concentrating ability,no memory lapses or loss, anddoes not forget words. For speech/motor difficulties, patient reportsno speech difficulties,no difficulty expressing formulated concepts,no difficulty with fine manipulative tasks,no difficulty writing/copying, anddoes not knock things over when trying to pick them up.Functional AbilityFor vision, patient reportsworse both distance and near (wears bifocals). For home safety, patient reportsdoes not have hand bars in the bathroom/showerbut reportsno unsafe haylee hazzards,no unsafe stairs,no unsafe gas appliances,working smoke/co detectors,use of seatbelts,no vision or hearing loss while driving,no fire arms,good lighting in the home, andnumber of motor vehicle accidents 0. For hearing, patient reportsno loss of hearing. For activities of daily living, patient reportsable to bathe with limited or no assistance,able to contol urination and bowels,able to dress with limited or no assistance,able to feed self with limited or no assistance,able to get out of chair or bed with limited or no assistance,able to groom with limited or no assistance, andable to toilet with limited or no assistance. For instrumental activities of daily living, patient reportsable to do house work with limited or no assistance,able to grocery shop with limited or no assistance,able to manage medications with limited or no assistance,able to manage money with limited or no assistance,able to prepare meals with limited or no assistance, andable to use the phone with limited or no assistance. For falls risk assessment, patient reportsno frequent falls while walking,no fall in the past year,no fall since last visit, andno dizziness/vertigo. For current level of pain, patient reportsno pain: 0/10. 63 year old female who presents to the office today for her initial medicare annual wellness Zariadottie DINAH gee [address], [place], [address], [employer] [facility] 01/09/2024 13:40:41 01/07/2024 text/html ROS as noted in the HPI 63 yr old female presents for right knee pain and swelling, no injury. Zariadottie Pittman APRN [address], [place], [address], [employer] [facility] 01/07/2024 13:36:59 02/04/2024 text/html ROS as noted in the HPI 63 year old female who presents to the office with concerns ofrash on arms after taking different fish oil supplementdiscuss testing results. pt states she sees cardiology 02/10 and pulmonology 02/17. pt states she wants to wait on colonoscopy at this time until all her other work up is complete Zariadottie Pittman APRN [address], [place], [address], [employer] [facility] 02/04/2024 10:29:44 02/26/2025 text/html Medicare Annual Wellness VisitReported by PatientSocial/Behavior al HistoryFor diet and nutrition, patient reportshigh caloric intakeandhigh carbohydrate meals. For physical activity, patient reportsdoes not exercise on a regular basisbut reportsgood physical condition. For fracture risk, patient reportsno history of fractures,no recent explained fracture,no sudden unexplained fractures, andno previous musculoskeletal injuries.Mental Status:For depression risk, patient reportsnever feels sad, empty, or tearful,no loss of interest in activities,no significant changes in weight,no sleep disturbances or insomnia,no agitation,no loss of energy,no feelings of worthlessness or guilt,no thoughts of suicide,no history of depression, andno history of mood disorders. For orientation, patient reportsno disorientation to time (around 11:00),no disorientation to date (02-26-25), andno disorientation to place (dr. morrison). For concentration and memory, patient reportsno decreased concentrating ability,no memory lapses or loss, anddoes not forget words. For speech/motor difficulties, patient reportsno speech difficulties,no difficulty with fine manipulative tasks,no difficulty writing/copying,no slowed reaction time, anddoes not knock things over when trying to pick them up.Functional AbilityFor vision, patient reportsworse near (wears readers). For home safety, patient reportsdoes not have hand bars in the bathroom/showerbut reportsno unsafe hayele hazzards,no unsafe stairs,no unsafe gas appliances,working smoke/co detectors,use of seatbelts,no vision or hearing loss while driving, andgood lighting in the home. For hearing, patient reportsno loss of hearing. For activities of daily living, patient reportsable to bathe with limited or no assistance,able to contol urination and bowels,able to dress with limited or no assistance,able to feed self with limited or no assistance,able to get out of chair or bed with limited or no assistance,able to groom with limited or no assistance, andable to toilet with limited or no assistance. For instrumental activities of daily living, patient reportsable to do house work with limited or no assistance,able to grocery shop with limited or no assistance,able to manage medications with limited or no assistance,able to manage money with limited or no assistance,able to prepare meals with limited or no assistance, andable to use the phone with limited or no assistance. For falls risk assessment, patient reportsno frequent falls while walking,no fall in the past year, andno fall since last visit. For current level of pain, patient reportsno pain: 0/10. 64 year old female who presents to the office today for amedicare annual wellnessneeds refils on paroxetine and simvastatin Lavinia Pittman, F[employer]OGRAPHIC PRESS OPERATOR [address], [place], [address], [place] [facility] 02/26/2025 11:04:11 OBGyn Episode No OBEpisode recorded.
== END 2025-05-04 23:59 | disposition home or self-care (01) ==
LOC: RAD 10:25
PROVIDERS: PCP Nurse Practitioner Family; Visit Provider Nurse Practitioner Family
DX: Z12.31 Encounter for screening mammogram for malignant neoplasm of breast (principal); R92.323 Mammographic fibroglandular density, bilateral breasts
CPT/HCPCS: 77063; 77067

== ENCOUNTER 2025-07-12 09:25 | Outpatient (CLI) | payer MEDICARE, SELFPAY ==
--- OUTSIDE RECORDS SUMMARY | 2025-07-09 04:02 | XMS_ITS | Continuity of Care Document ---
Author Organization [facility] Phone Care Team Providers Care Accounting Associate Name Role Phone ALDEN BERNABE Surgeon REKHA CULP Primary Care ALDEN BERNABE Admitting ALDEN BERNABE Primary Attending ALDEN BERNABE Unavailable ALLERGIES AND ADVERSE REACTIONS ALLERGIES AND ADVERSE REACTIONS Code System Allergy Substance Adverse Reaction Date Reaction (Severity) Comment Status Reported By Updated By No Known Allergies [id number] on July 07, 2025 1:29:32 PM [place] RESULTS Patient: CLEMECNIA COATS Date of : September 25 LABORATORY RESULTS Information is not available LABORATORY NARRATIVE RESULTS Information is not available RADIOLOGY RESULTS ORDER 100: WRIST 3V RT (LOIN C: 83675-7) ORDER DATE: July 07, 2025 1:16:00 PM [facility] PERFORMING LAB: [address] [id number] Final Result Date: July 07, 2025 1:55:[address] [address] Name: ISAI KHANNA Exam Date: 07/07/2025 : 1960 Age 64 years Gender: F Physician: ALDEN BERNABE Facility: [facility] HSV: Outpatient Exam: WRIST 3V RT EXAM DESCRIPTION: WRIST 3V RT Date: 07/07/2025 7:29 AM HEADING PINNER CLINICAL HISTORY: 64 years Female, Pain with Trauma/Injury COMPARISON: None available. TECHNIQUE: 3 views FINDINGS: There is a dorsally impacted and dorsally angulated distal radius fracture. Displaced ulnar styloid fracture is also present. Osteoarthritis is present, worst at the thumb carpometacarpal joint. IMPRESSION: 1. Distal radius and ulna fractures. Electronically signed by: Kashmir Webster MD 07/07/2025 08:56 AM EST RP Dictated By: KASHMIR WEBSTER Transcribed By: Transcribed On: 07/07/2025 8:55 AM Electronically signed by: KASHMIR WEBSTER 07/07/2025 Thank you for referring ISAI KHANNA to [facility]. Legally authenticated by RADHA DE ANDA 2025-07-07 08:55:40 ORDER 200: WRIST 3V RT (LOIN C: 02727-4) ORDER DATE: July 07, 2025 3:04:00 PM [facility] PERFORMING LAB: [address] [id number] Final Result Date: July 07, 2025 4:20:[address] [address] Name: ISAI KHANNA Exam Date: 07/07/2025 : 1960 Age 64 years Gender: F Physician: ALDEN BERNABE Facility: [facility] HSV: Outpatient Exam: WRIST 3V RT EXAM DESCRIPTION: WRIST 3V RT Date: 07/07/2025 9:31 AM HEADING PINNER CLINICAL HISTORY: 64 years Female, Pain with Trauma/Injury COMPARISON: Earlier same day TECHNIQUE: Conventional radiography. FINDINGS: Dorsally impacted and dorsally angulated distal radius fracture shows improvement in dorsal angulation. Ulnar styloid fracture shows slightly less displacement. No new abnormality. IMPRESSION: Improved alignment Electronically signed by: Kashmir Webster MD 07/07/2025 11:33 AM EST RP Dictated By: KASHMIR WEBSTER Transcribed By: Transcribed On: 07/07/2025 11:20 AM Electronically signed by: KASHMIR WEBSTER 07/07/2025 Thank you for referring ISAI KHANNA to [facility]. Legally authenticated by RADHA DE ANDA 2025-07-07 11:20:23 PATHOLOGY NARRATIVE RESULTS Information is not available MICROBIOLOGY RESULTS No Micro Labs/Results Exist for Patient BLOOD ADMIN RESULTS Information is not available MEDICATIONS HOME MEDICATIONS Status RXNORM NDC Medication Dose Route Frequency Dates Comments Reported By Updated By Active FreeT extMe d Paxil oral 0.0 Last Dose: [id number] on July 07, 2025 1:29:32 PM UTC Active FreeT extMe d simvastatin oral 0.0 Last Dose: [id number] on July 07, 2025 1:29:32 PM UTC Active FreeT extMe d albuterol sulfate inhalation 0.0 Last Dose: [id number] on July 07, 2025 1:29:32 PM UT Active FreeT extMe d Atrovent HFA inhalation 0.0 Last Dose: [id number] on July 07, 2025 1:29:32 PM UT DISCHARGE MEDICATIONS Status RXNORM NDC Medication Dose Route Frequency Dates Dis pense Data Comments Physician Updated By No Discharge Medication Info rmation Available INPATIENT MEDICATIONS Status RXNORM NDC Medication Dose Route Frequency Rat e Quantity Dates Indication Dispense Data Comments Physician Updated By Discont inued [phone] HYDROmorpho ne (DILAUDID) 2 MG/ML SOLN 2.0 MG INTRAV ENOUS ONE TIME ONLY Start: [facility] 2024 2:09:0 0 PM UTC End: [facility] 2024 2:09:0 0 PM UTC Fill Status = Completed , Repeat Number = 0, Quantity = 1.000 SRINIVASA [facility] on July 07, 2025 2:08:00 PM UT Discont inued [id number] 1024 617 ondansetron (ZOFRAN) 4 MG TBDP 4.0 MG ORAL ONE TIME ONLY Start: [facility] 2024 2:09:0 0 PM UTC End: [facility] 2024 2:09:0 0 PM UTC Fill Status = Completed , Repeat Number = 0, Quantity = 1.000 SRINIVASA [facility] [place] on July 07, 2025 2:08:00 PM UT SOCIAL HISTORY SOCIAL HISTORY - Smoking Status SNOMED-CT Social History Element Description Effective Dates Offered Cessation Comment Updated By [id number] Current Tobacco smoking status Current Every Day Smoker [id number] on July 07, 2025 1:31:07 PM UTC SOCIAL HISTORY - Gender Sex: Female SOCIAL HISTORY - Status : status i nformation is not available Intention in Next Year: intention information is not available SOCIAL HISTORY - Assessments Code System Description Status Date Value of Assessment Updated By Comment Assessment Information is no t available SOCIAL HISTORY - [place] Affiliation [place] information is not av ailable SOCIAL HISTORY - Legal Sex Legal Sex : Female (finding) SOCIAL HISTORY - Sexual Behavior Sexual Orientation Gender Identity SNOMED-CT Description SNO MED -CT Description Activity Level No of Partners Partner Type UpdatedBy Information is not available SOCIAL HISTORY - Occupation Occupation information is no t available VITAL SIGNS PATIENT VITAL SIGNS This section displays the mo st recent value for each vital sign as of July 09, 2025 9:02:47 AM UT Loinc Code Vital Sign Activity Date Result Updated By 8302-2 Body height July 07 1:21:03 PM UTC 167.64 cm (66.0 in) [id number] on July 07, 2025 1:21:[place] [address]-5 Body mass index (BMI ) [Ratio] July 07, 2025 1:21:03 PM UTC 24.261 kg/m2 [id number] on July 07, 2025 1:21:03 PM UTC 3140-1 Body Surface Area Derived From Formula July 07, 2025 1:21:03 PM UTC 1.7715 m2 [id number] on July 07, 2025 1:21:03 PM UTC 8310-5 Body temperature July 07 1:18:00 PM UTC 97.0 [degF] [id number] on July 07, 2025 1:21:02 PM UTC 12137-7 Body weight Measured June 1:21:03 PM UTC 68.18 kg (150.0 lb) [id number] on July 07, 2025 1:21:03 PM UTC 8462-4 Diastolic blood pressure July 07, 2025 4:07:00 PM UTC 60.0 mm[Hg] [id number] on July 07, 2025 4:07:50 PM UTC 8867-4 Heart rate July 07 4:07:00 PM UTC 65 /min [id number] on July 07, 2025 4:07:50 PM UTC 80700-6 Oxygen saturation in Arterial blood by Pulse oximetry July 07, 2025 4:07:00 PM UT 93.0 % [id number] on July 07, 2025 4:07:50 PM [facility] 9279-1 Respiratory rate July 07 1:18:00 PM UT 16 /min [id number] on July 07, 2025 1:21:02 PM [facility] 8480-6 Systolic blood pressure July 07, 2025 4:07:00 PM UT 130.0 mm[Hg] [id number] on July 07, 2025 4:07:50 PM [facility] PEDIATRIC GROWTH CHART - VITAL SIGNS This section displays Head C ircumference Percentile, Weight for Length Percentile and BMI Percentile Loinc Code Pediatric Measure Age (Months) Result Updat ed By No Pediatric Growth Chart Pe rcentile Information Available. ENCOUNTERS ENCOUNTER INFORMATION Reason for Visit FALL INJURY Admission July 07, 2025 1:03:00 PM [place] [address] Discharge July 07, 2025 4:07:00 PM [facility] DISCHARGED TO HOME OR SELF CARE ENCOUNTER DIAGNOSES Notes information is not ursula ilable. Code System Diagnosis Onset Date Diagnosis information is not available. ABSTRACT DIAGNOSES Code System Diagnosis Updated By Abatement Date S69.91XA ICD10 UNSPECIFIED INJU RY OF RIGHT WRIST, HAND AND FINGER(S), INITIAL ENCOUNTER [id number] on July 09, 2025 9:01:35 AM [facility] M25.531 ICD10 PAIN IN RIGHT WRIST [id number] on July 09, 2025 9:01:35 AM [facility] M25.432 ICD10 EFFUSION, LEFT WRIST [id number] on July 09, 2025 9:01:35 AM [facility] M21.931 ICD10 UNSPECIFIED ACQU IRED DEFORMITY OF RIGHT FOREARM [id number] on July 09, 2025 9:01:35 AM [facility] S52.501A ICD10 UNSPECIFIED FRAC TURE OF THE LOWER END OF RIGHT RADIUS, INITIAL ENCOUNTER FOR CLOSED FRACTURE [id number] on July 09, 2025 9:01:35 AM [facility] S52.601A ICD10 UNSPECIFIED FRAC TURE OF LOWER END OF RIGHT ULNA, INITIAL ENCOUNTER FOR CLOSED FRACTURE [id number] on July 09, 2025 9:01:35 AM [facility] E78.5 ICD10 HYPERLIPIDEMIA, UNSPECIFIED [id number] on July 09, 2025 9:01:35 AM [facility] J44.9 ICD10 CHRONIC OBSTRUCT ELKE PULMONARY DISEASE, UNSPECIFIED [id number] on July 09, 2025 9:01:35 AM [facility] F17.210 ICD10 NICOTINE DEPENDE NCE, CIGARETTES, UNCOMPLICATED [id number] on July 09, 2025 9:01:35 AM [facility] Z79.899 ICD10 OTHER USP (CURRENT) DRUG THERAPY [id number] on July 09, 2025 9:01:35 AM [facility] W01.0XXA ICD10 FALL ON SAME LEV EL FROM SLIPPING, TRIPPING AND STUMBLING WITHOUT SUBSEQUENT STRIKING AGAINST OBJECT, INITIAL ENCOUNTER [id number] on July 09, 2025 9:01:35 AM [facility] Y92.[address] AND HIG[address]AY THE PLACE OF OCCURRENCE OF THE EXTERNAL CAUSE [id number] on July 09, 2025 9:01:35 AM [facility] CARE TEAM Care Accounting Associate Role ALDEN BERNABE Surgeon REKHA CULP Primary Care ALDEN BERNABE Admitting ALEDN BERNABE Primary Attending ALDEN BERNABE Referring CARE TEAM CARE predatory animal trapper Role on Team Location Telecom Status Start Date End Andrew e Updated By SRINIVASA MELO Surgeon [address] [place] [address], [phone] normal July 07, 2025 1:03:00 PM [place] July 07, 2025 4:07:00 PM [facility] [id number] on July 09, 2025 9:02:16 AM [facility] SRINIVASA MELO Referring [address] [place] [address], [address] normal July 07, 2025 2:02:57 PM [place] July 07, 2025 4:07:00 PM [place] [id number] on July 09, 2025 9:02:16 AM [facility] SRINIVASA MELO Attending [address] [place] [address], [phone] normal July 07, 2025 2:02:57 PM UT July 07, 2025 4:07:00 PM [place] [id number] on July 09, 2025 9:02:16 AM [facility] SRINIVASA MELO Admitting [address] [place] [address], [phone] normal July 07, 2025 2:02:57 PM UT July 07, 2025 4:07:00 PM [facility] [id number] on July 09, 2025 9:02:16 AM [facility] ROBBI DA SILVA PCP [address] [place], [address] normal July 07, 2025 1:05:47 PM [facility] July 07, 2025 4:07:00 PM [facility] [id number] on July 09, 2025 9:02:16 AM [facility] INSURANCE PROVIDERS INSURANCE PROVIDER Coverage Status - Effective Date Coverage Type Payor Plan Order Relationship To Subscriber Insurance Plan No Insurance Plan 2024-07-15 M PRIMARY 18 [phone] [id number]
--- OUTSIDE RECORDS SUMMARY | 2025-07-12 09:41 | XMS_ITS | Data Portability ---
Author Organization Formerly [facility] Address [address] [place] [address] Assessment Encounter Date Assessment Date Assessment LastModified [...] [facility], [address], [address], [place], [address], 5 07:07:03 CBC w/ auto diff 2024 025 DIAN [facility], [address], [address], [place], [address], 5 07:07:02 TSH + free T4, serum 2024 025 DIAN [facility], [address], [address], [place], [address], 5 07:07:01 CMP, serum or plasma 2024 025 DIAN [facility], [address], [address], [place], [address], 5 07:07:02 lipid panel, serum 2024 025 DIAN [facility], [address], [address], [place], [address], 5 07:07:03 HbA1c (hemoglobin A1c), blood 2023 024 DIAN [facility], [address], [address], [place], [address], 4 07:08:47 CBC w/ auto diff 2023 024 DIAN [facility], [address], [address], [place], [address], 4 07:08:46 CMP, serum or plasma 2023 024 DIAN [facility], [address], [address], [place], [address], 4 07:08:46 lipid panel, serum 2023 024 DIAN [facility], [address], [address], [place], [address], 4 07:08:47 noninvasive colorectal cancer DNA + occult blood screening, QL, stool 2023 024 [facility], [address], [address], [place], [address], 4 11:24:14 hepatitis panel (A+B+C), acute, serum 2023 024 DIAN [facility], [address], [address], [place], [address], 4 07:08:45 Referral None recorded. Procedures None recorded. Surgeries None recorded. Imaging MAMMO, screening, digital, bilateral 2024 025 [facility] [address], [place], [address], 5 15:14:45 MAMMO, screening, digital, bilateral - wants scheduled around February 172023 024 [facility], [address] [place], [address], 4 13:08:42 DEXA, vertebral fracture assessment - wants scheduled at a later date 2023 024 [facility], [address] [place], [address], 4 13:08:09 LDCT, chest, for lung cancer screening 2023 024 [facility], [address] [place], [address], 4 11:15:45 Medication Orders paroxetine 30 mg tablet 2024 025 [facility], [address] [place] [address], [place], [address], 5 11:02:08 simvastatin 40 mg tablet 2024 025 [facility] [place], [address] [place] [address], [place], [address], 5 11:02:27 triamcinolo ne acetonide 0.1 % topical cream 2023 024 [facility] [place], [address] [place] [address], [place], [address], 10:40:09 prednisone 20 mg tablet 2023 024 [facility] [place], [address] [place] [address], [place], [address], 11:42:41 Patient TargetsNo targets recorded. Patient Instructions Encounter Date Encounter Id Patient Instructions Last Modified By Organization Details Last Modified Time 12/23/2023 [id number] advance directives: care instructions efryman Not available [...] minutes efryman Not available 12/23/2023 11:30:15 02/26/2025 [id number] advance directives: care instructions efryman Not available [...] Antib rosemary w/ Rfx). Not Available [facility] ([facility]) [address] [place], [address], 12/24/2023 07:08:45 12/23/1912/24/2023 HAV, HBV, HCV hep A Ab, IgM Negati ve negati ve Not Available [facility] ([facility]) [address] [place], [address], 12/24/2023 07:08:45 12/23/19 24 12/24/2023 HAV, HBV, HCV HBsAg screen Negati ve negati ve Not Available [facility] ([facility]) [address] [place], [address], 12/24/2023 07:08:45 12/23/1912/24/2023 HAV, HBV, HCV hep B surface Ab, qual Reacti ve Non React elke: Incon siste nt with immun ity, less than 10 mIU/m L React elke: Consi stent with immun ity, great er than 9.9 mIU/m L Not Available [facility] ([facility]) [address] [place], [address], 12/24/2023 07:08:45 12/23/1912/24/2023 HAV, HBV, HCV hep B core Ab, tot Negati ve negati ve Not Available [facility] ([facility]) [address] [place], [address], 12/24/2023 07:08:45 12/23/19 24 12/24/2023 HAV, HBV, HCV rfx to hbc IgM Commen t Refle x crite laisha was not met. Not Available [facility] ([facility]) [address] [facility], [place], [address], 12/24/2023 07:08:45 12/23/19 24 12/24/2023 HAV, HBV, [...] n); false - posit elke anti- HBc ([facility]); low- level chron ic infec tion ; resol ving acute infec tion. Not Available [facility] ([facility]) [address] [facility], [place], [address], 12/24/2023 07:08:45 12/23/19 24 12/24/2023 HAV, HBV, HCV HCV Ab Non Reacti ve non reacti ve Not Available [facility] ([facility]) [address] [facility], [place], [address], 12/24/2023 07:08:45 12/23/19 24 12/24/2023 HAV, HBV, HCV interpretati on: Commen t Not infec moe with HCV unles s early or acute infec tion is suspe cted (whic h may be delay ed in an immun ocomp romis ed indiv idual ), or other evide nce exist s to indic ate HCV infec tion. Not Available [facility] ([facility]) [address] [facility], [place], [address], 12/24/2023 07:08:45 12/23/19 24 12/24/2023 CBC WITH DIFFE RENTI AL/PL ATELE T WBC 5.2 x10e3 /uL 3.4-10 .8 Not Available [facility] ([facility]) [address] [facility], [place], [address], 12/24/2023 07:08:45 12/23/19 24 12/24/2023 CBC WITH DIFFE RENTI AL/PL ATELE T RBC 4.95 x10e6 /uL 3.77-5 .28 Not Available [facility] ([facility]) [address] [facility], [place], [address], 12/24/2023 07:08:45 12/23/19 24 12/24/2023 CBC WITH DIFFE RENTI AL/PL ATELE T hemoglobin 14.6 g/dL 11.1-1 5.9 Not Available [facility] ([facility]) [address] [facility], [place], [address], 12/24/2023 07:08:45 12/23/19 24 12/24/2023 CBC WITH DIFFE RENTI AL/PL ATELE T hematocrit 42.8 % 34.0-4 6.6 Not Available [facility] ([facility]) [address] [place], [address], 12/24/2023 07:08:45 12/23/19 24 12/24/2023 CBC WITH DIFFE RENTI AL/PL ATELE T MCV 87 fL 79-97 Not Available [facility] ([facility]) [address] [facility], [place], [address], 12/24/2023 07:08:45 12/23/19 24 12/24/2023 CBC WITH DIFFE RENTI AL/PL ATELE T MCH 29.5 pg 26.6-3 3.0 Not Available [facility] ([facility]) [address] [facility], [place], [address], 12/24/2023 07:08:45 12/23/19 24 12/24/2023 CBC WITH DIFFE RENTI AL/PL ATELE T MCHC 34.1 g/dL 31.5-3 5.7 Not Available [facility] ([facility]) [address] [facility], [place], [address], 12/24/2023 07:08:45 12/23/19 24 12/24/2023 CBC WITH DIFFE RENTI AL/PL ATELE T RDW 12.8 % 11.7-1 5.4 Not Available [facility] ([facility]) [address] [facility], [place], [address], 12/24/2023 07:08:45 12/23/19 24 12/24/2023 CBC WITH DIFFE RENTI AL/PL ATELE T platelets 192 x10e3 /uL 150-45 0 Not Available [facility] ([facility]) [address] [facility], [place], [address], 12/24/2023 07:08:45 12/23/19 24 12/24/2023 CBC WITH DIFFE RENTI AL/PL ATELE T neutrophils 49 % not estab. Not Available [facility] ([facility]) [address] [facility], [place], [address], 12/24/2023 07:08:45 12/23/19 24 12/24/2023 CBC WITH DIFFE RENTI AL/PL ATELE T lymphs 40 % not estab. Not Available [facility] ([facility]) [address] [place], [address], 12/24/2023 07:08:45 12/23/19 24 12/24/2023 CBC WITH DIFFE RENTI AL/PL ATELE T monocytes 8 % not estab. Not Available [facility] ([facility]) [address] [facility], [place], [address], 12/24/2023 07:08:45 12/23/19 24 12/24/2023 CBC WITH DIFFE RENTI AL/PL ATELE T eos 1 % not estab. Not Available [facility] ([facility]) [address] [facility], [place], [address], 12/24/2023 07:08:45 12/23/19 24 12/24/2023 CBC WITH DIFFE RENTI AL/PL ATELE T basos 1 % not estab. Not Available [facility] ([facility]) [address] [place], [address], 12/24/2023 07:08:45 12/23/19 24 12/24/2023 CBC WITH DIFFE RENTI AL/PL ATELE T immature cells [employer] L[employer] GRIND[employer] APPRENTICE Not Available [facility] [address] [place], [address], 12/24/2023 07:08:45 12/23/19 24 12/24/2023 CBC WITH DIFFE RENTI AL/PL ATELE T neutrophils (absolute) 2.6 x10e3 /uL 1.4-7. 0 Not Available [facility] ([facility]) [address] [place], [address], 12/24/2023 07:08:45 12/23/19 24 12/24/2023 CBC WITH DIFFE RENTI AL/PL ATELE T lymphs (absolute) 2.1 x10e3 /uL 0.7-3. 1 Not Available [facility] ([facility]) [address] [facility], [place], [address], 12/24/2023 07:08:45 12/23/19 24 12/24/2023 CBC WITH DIFFE RENTI AL/PL ATELE T monocytes(ab solute) 0.4 x10e3 /uL 0.1-0. 9 Not Available [facility] ([facility]) [address] [facility], [place], [address], 12/24/2023 07:08:45 12/23/19 24 12/24/2023 CBC WITH DIFFE RENTI AL/PL ATELE T eos (absolute) 0.0 x10e3 /uL 0.0-0. 4 Not Available [facility] ([facility]) [address] [facility], [place], [address], 12/24/2023 07:08:45 12/23/19 24 12/24/2023 CBC WITH DIFFE RENTI AL/PL ATELE T baso (absolute) 0.1 x10e3 /uL 0.0-0. 2 Not Available [facility] ([facility]) [address] [facility], [place], [address], 12/24/2023 07:08:45 12/23/19 24 12/24/2023 CBC WITH DIFFE RENTI AL/PL ATELE T immature granulocytes 1 % not estab. Not Available [facility] ([facility]) [address] [place], [address], 12/24/2023 07:08:45 12/23/19 24 12/24/2023 CBC WITH DIFFE RENTI AL/PL ATELE T immature grans (abs) 0.0 x10e3 /uL 0.0-0. 1 Not Available [facility] ([facility]) [address] [facility], [place], [address], 12/24/2023 07:08:45 12/23/19 24 12/24/2023 CBC WITH DIFFE RENTI AL/PL ATELE T NRBC PREC[employer] APPRENTICE Not Available [facility] ([facility]) [address] [facility] [place], [address], 12/24/2023 07:08:45 12/23/19 24 12/24/2023 CBC WITH DIFFE RENTI AL/PL ATELE T hematology comments: [employer]CISION [employer] APPRENTICE Not Available [facility] [address] [facility] [place], [address], 12/24/2023 07:08:45 12/23/19 24 12/24/2023 COMP. METAB OLIC PANEL (14) glucose 91 mg/dL 70-99 Not Available [facility] ([facility]) [address] [place], [address], 12/24/2023 07:08:46 12/23/19 24 12/24/2023 COMP. METAB OLIC PANEL (14) BUN 7 mg/dL 8-27 below low normal Not Available [facility] ([facility]) [address] [facility] [place], [address], 12/24/2023 07:08:46 12/23/19 24 12/24/2023 COMP. METAB OLIC PANEL (14) creatinine 0.64 mg/dL 0.57-1 .00 Not Available [facility] ([facility]) [address] [place], [address], 12/24/2023 07:08:46 12/23/19 24 12/24/2023 COMP. METAB OLIC PANEL (14) eGFR 98 mL/mi n/1.7 3 >59 Not Available [facility] ([facility]) [address] [place], [address], 12/24/2023 07:08:46 12/23/19 24 12/24/2023 COMP. METAB OLIC PANEL (14) BUN/creatini ne ratio 11 12-28 below low normal Not Available [facility] ([facility]) [address] [place], [address], 12/24/2023 07:08:46 12/23/19 24 12/24/2023 COMP. METAB OLIC PANEL (14) sodium 138 mmol/ L 134-14 4 Not Available [facility] ([facility]) [address] [place], [address], 12/24/2023 07:08:46 12/23/19 24 12/24/2023 COMP. METAB OLIC PANEL (14) potassium 4.1 mmol/ L 3.5-5. 2 Not Available [facility] ([facility]) [address] [place], [address], 12/24/2023 07:08:46 12/23/19 24 12/24/2023 COMP. METAB OLIC PANEL (14) chloride 98 mmol/ L 96-106 Not Available [facility] ([facility]) [address] [place], [address], 12/24/2023 07:08:46 12/23/19 24 12/24/2023 COMP. METAB OLIC PANEL (14) carbon dioxide, total 27 mmol/ L 20-29 Not Available [facility] ([facility]) [address] [place], [address], 12/24/2023 07:08:46 12/23/19 24 12/24/2023 COMP. METAB OLIC PANEL (14) calcium 9.2 mg/dL 8.7-10 .3 Not Available [facility] ([facility]) [address] [place], [address], 12/24/2023 07:08:46 12/23/19 24 12/24/2023 COMP. METAB OLIC PANEL (14) protein, total 6.7 g/dL 6.0-8. 5 Not Available [facility] ([facility] [address] [place], [address], 12/24/2023 07:08:46 06/10/20 24 12/24/2023 COMP. METAB OLIC PANEL (14) albumin 4.4 g/dL 3.9-4. 9 Not Available [facility] ([facility]) [address] [facility], [place], [address], 12/24/2023 07:08:46 12/23/19 24 12/24/2023 COMP. METAB OLIC PANEL (14) globulin, total 2.3 g/dL 1.5-4. 5 Not Available [facility] ([facility]) [address] [facility], [place], [address], 12/24/2023 07:08:46 12/23/19 24 12/24/2023 COMP. METAB OLIC PANEL (14) A/G ratio 1.9 Not Available [facility] ([facility]) [address] [facility], [place], [address], 12/24/2023 07:08:46 12/23/19 24 12/24/2023 COMP. METAB OLIC PANEL (14) bilirubin, total 0.4 mg/dL 0.0-1. 2 Not Available [facility] ([facility]) [address] [facility], [place], [address], 12/24/2023 07:08:46 12/23/19 24 12/24/2023 COMP. METAB OLIC PANEL (14) alkaline phosphatase 53 IU/L 44-121 Not Available [facility] [address] [facility], [place], [address], 12/24/2023 07:08:46 12/23/19 24 12/24/2023 COMP. METAB OLIC PANEL (14) AST (SGOT) 26 IU/L 0-40 Not Available [facility] ([facility]) [address] [facility], [place], [address], 12/24/2023 07:08:46 12/23/19 24 12/24/2023 COMP. METAB OLIC PANEL (14) ALT (SGPT) 16 IU/L 0-32 Not Available [facility] ([facility] [address] [place], [address], 12/24/2023 07:08:46 12/23/19 24 12/24/2023 LIPID PANEL cholesterol, total 135 mg/dL 100-19 9 Not Available [facility] ([facility] [address] [place], [address], 12/24/2023 07:08:47 12/23/19 24 12/24/2023 LIPID PANEL triglyceride s 79 mg/dL 0-149 Not Available [facility] [address] [place], [address], 12/24/2023 07:08:47 12/23/19 24 12/24/2023 LIPID PANEL HDL cholesterol 51 mg/dL >39 Not Available [facility] [address] [place], [address], 12/24/2023 07:08:47 12/23/19 24 12/24/2023 LIPID PANEL VLDL cholesterol shari 16 mg/dL 5-40 Not Available [facility] [address] [place], [address], 12/24/2023 07:08:47 12/23/19 24 12/24/2023 LIPID PANEL LDL chol calc ([facility]) 68 mg/dL 0-99 Not Available [facility] [address] [place], [address], 12/24/2023 07:08:47 12/23/19 24 12/24/2023 LIPID PANEL LDL calc comment: TNP Test not perfo rmed Not Available [facility] ([facility]) [address] [place], [address], 12/24/2023 07:08:47 12/23/19 24 12/24/2023 HEMOG LOBIN A1C hemoglobin A1C 6.0 % 4.8-5. 6 above high normal Predi abete s: 5.7 - 6.4 Diabe adriana: >6.4 Glyce sonam contr ol for adult s with diabe adriana: <7.0 Not Available [facility] ([facility]) [address] [facility], [place], [address], 12/24/2023 07:08:47 01/08/20 24 01/08/2024 COLOG UARD [...] is negat elke. TEST DESCR IPTIO N: [place] site algor ithmi c david sis of [...] years or older , who are at [facility] for color ectal cance r ([facility]) . Colog uard has been appro lisbeth for use by the [place] FDA. The perfo rmanc e of Colog uard was estab lishe d in a cross secti onal study of [facility] adult s aged 50-84 . Colog [...] study of 0 indiv idual s at [facility] risk for color ectal cance r [...] at www.c gregg carrillod.c om. Not Available [facility] [address], [place], [address], 01/12/2024 11:24:14 02/27/20 25 02/27/2025 TSH+F REE T4 TSH 2.400 uIU/m L 0.450- 4.500 normal Not Available [facility] ([facility]) [address], [place], [address], 02/27/2025 07:07:01 02/27/20 25 02/27/2025 TSH+F REE T4 T4,free(dire ct) 1.23 NG/dL 0.82-1 .77 normal Not Available [facility] ([facility]) [address] [place], [address], 02/27/2025 07:07:01 02/27/2002/27/2025 CBC WITH DIFFE RENTI AL/PL ATELE T WBC 4.7 x10e3 /uL 3.4-10 .8 normal Not Available [facility] ([facility]) [address] [place], [address], 02/27/2025 07:07:02 02/27/2002/27/2025 CBC WITH DIFFE RENTI AL/PL ATELE T RBC 4.92 x10e6 /uL 3.77-5 .28 normal Not Available [facility] ([facility]) [address] [place], [address], 02/27/2025 07:07:02 02/27/2002/27/2025 CBC WITH DIFFE RENTI AL/PL ATELE T hemoglobin 14.8 g/dL 11.1-1 5.9 normal Not Available [facility] ([facility]) [address] [place], [address], 02/27/2025 07:07:02 02/27/2002/27/2025 CBC WITH DIFFE RENTI AL/PL ATELE T hematocrit 45.4 % 34.0-4 6.6 normal Not Available [facility] ([facility]) [address] [place], [address], 02/27/2025 07:07:02 02/27/2002/27/2025 CBC WITH DIFFE RENTI AL/PL ATELE T MCV 92 fL 79-97 normal Not Available [facility] ([facility]) [address] [place], [address], 02/27/2025 07:07:02 02/27/2002/27/2025 CBC WITH DIFFE RENTI AL/PL ATELE T MCH 30.1 pg 26.6-3 3.0 normal Not Available [facility] ([facility]) [address] [facility], [place], [address], 02/27/2025 07:07:02 02/27/20 25 02/27/2025 CBC WITH DIFFE RENTI AL/PL ATELE T MCHC 32.6 g/dL 31.5-3 5.7 normal Not Available [facility] ([facility]) [address] [facility], [place], [address], 02/27/2025 07:07:02 02/27/2002/27/2025 CBC WITH DIFFE RENTI AL/PL ATELE T RDW 12.6 % 11.7-1 5.4 Not Available [facility] ([facility]) [address] [facility], [place], [address], 02/27/2025 07:07:02 02/27/20 25 02/27/2025 CBC WITH DIFFE RENTI AL/PL ATELE T platelets 153 x10e3 /uL 150-45 0 normal Not Available [facility] ([facility]) [address] [facility], [place], [address], 02/27/2025 07:07:02 02/27/20 25 02/27/2025 CBC WITH DIFFE RENTI AL/PL ATELE T neutrophils 46 % not estab. normal Not Available [facility] ([facility]) [address] [facility], [place], [address], 02/27/2025 07:07:02 02/27/20 25 02/27/2025 CBC WITH DIFFE RENTI AL/PL ATELE T lymphs 44 % not estab. normal Not Available [facility] ([facility]) [address] [facility], [place], [address], 02/27/2025 07:07:02 02/27/20 25 02/27/2025 CBC WITH DIFFE RENTI AL/PL ATELE T monocytes 8 % not estab. normal Not Available [facility] ([facility]) [address] [facility], [place], [address], 02/27/2025 07:07:02 02/27/20 25 02/27/2025 CBC WITH DIFFE RENTI AL/PL ATELE T eos 1 % not estab. normal Not Available [facility] ([facility]) [address] [facility], [place], [address], 02/27/2025 07:07:02 02/27/20 25 02/27/2025 CBC WITH DIFFE RENTI AL/PL ATELE T basos 1 % not estab. normal Not Available [facility] ([facility]) [address] [facility], [place], [address], 02/27/2025 07:07:02 02/27/20 25 02/27/2025 CBC WITH DIFFE RENTI AL/PL ATELE T immature cells [employer]PRENTICE Not Available [facility] ([facility] [address] [place], [address], 02/27/2025 07:07:02 02/27/2002/27/2025 CBC WITH DIFFE RENTI AL/PL ATELE T neutrophils (absolute) 2.2 x10e3 /uL 1.4-7. 0 normal Not Available [facility] ([facility]) [address] [place], [address], 02/27/2025 07:07:02 02/27/2002/27/2025 CBC WITH DIFFE RENTI AL/PL ATELE T lymphs (absolute) 2.1 x10e3 /uL 0.7-3. 1 normal Not Available [facility] ([facility]) [address] [place], [address], 02/27/2025 07:07:02 02/27/20 25 02/27/2025 CBC WITH DIFFE RENTI AL/PL ATELE T monocytes(ab solute) 0.4 x10e3 /uL 0.1-0. 9 normal Not Available [facility] ([facility]) [address] [facility], [place], [address], 02/27/2025 07:07:02 02/27/20 25 02/27/2025 CBC WITH DIFFE RENTI AL/PL ATELE T eos (absolute) 0.1 x10e3 /uL 0.0-0. 4 normal Not Available [facility] ([facility]) [address] [facility], [place], [address], 02/27/2025 07:07:02 02/27/2002/27/2025 CBC WITH DIFFE RENTI AL/PL ATELE T baso (absolute) 0.0 x10e3 /uL 0.0-0. 2 normal Not Available [facility] ([facility]) [address] [facility], [place], [address], 02/27/2025 07:07:02 02/27/20 25 02/27/2025 CBC WITH DIFFE RENTI AL/PL ATELE T immature granulocytes 0 % not estab. Not Available [facility] ([facility]) [address] [facility], [place], [address], 02/27/2025 07:07:02 02/27/20 25 02/27/2025 CBC WITH DIFFE RENTI AL/PL ATELE T immature grans (abs) 0.0 x10e3 /uL 0.0-0. 1 Not Available [facility] ([facility]) [address] [facility], [place], [address], 02/27/2025 07:07:02 02/27/2002/27/2025 CBC WITH DIFFE RENTI AL/PL ATELE T NRBC PRECISION L[employer] GR[employer] APPRENTICE Not Available [facility] ([facility]) [address] [facility], [place], [address], 02/27/2025 07:07:02 02/27/20 25 02/27/2025 CBC WITH DIFFE RENTI AL/PL ATELE T hematology comments: PRECISION [employer] GR[employer] APPRENTICE Not Available [facility] ([facility] [address] [place], [address], 02/27/2025 07:07:02 02/27/20 25 02/27/2025 COMP. METAB OLIC PANEL (14) glucose 87 mg/dL 70-99 normal Not Available [facility] ([facility]) [address] [place], [address], 02/27/2025 07:07:02 02/27/20 25 02/27/2025 COMP. METAB OLIC PANEL (14) BUN 5 mg/dL 8-27 below low normal Not Available [facility] ([facility]) [address] [place], [address], 02/27/2025 07:07:02 02/27/20 25 02/27/2025 COMP. METAB OLIC PANEL (14) creatinine 0.60 mg/dL 0.57-1 .00 normal Not Available [facility] ([facility]) [address] [place], [address], 02/27/2025 07:07:02 02/27/20 25 02/27/2025 COMP. METAB OLIC PANEL (14) eGFR 99 mL/mi n/1.7 3 >59 normal Not Available [facility] ([facility]) [address] [place], [address], 02/27/2025 07:07:02 02/27/20 25 02/27/2025 COMP. METAB [...] at www.k doqi. org. Not Available [facility] ([facility]) [address] [facility] [place], [address], 02/27/2025 07:07:02 02/27/20 25 02/27/2025 COMP. METAB OLIC PANEL (14) BUN/creatini ne ratio 8 12-28 below low normal Not Available [facility] ([facility] [address] [facility] [place], [address], 02/27/2025 07:07:02 02/27/20 25 02/27/2025 COMP. METAB OLIC PANEL (14) sodium 137 mmol/ L 134-14 4 normal Not Available [facility] ([facility]) [address] [facility], [address], 02/27/2025 07:07:02 02/27/20 25 02/27/2025 COMP. METAB OLIC PANEL (14) potassium 4.3 mmol/ L 3.5-5. 2 normal Not Available [facility] ([facility] [address] [facility], [address], 02/27/2025 07:07:02 02/27/20 25 02/27/2025 COMP. METAB OLIC PANEL (14) chloride 97 mmol/ L 96-106 normal Not Available [facility] ([facility] [address] [facility], [address], 02/27/2025 07:07:02 02/27/20 25 02/27/2025 COMP. METAB OLIC PANEL (14) carbon dioxide, total 26 mmol/ L 20-29 normal Not Available [facility] ([facility]) [address] [place], [address], 02/27/2025 07:07:02 02/27/2002/27/2025 COMP. METAB OLIC PANEL (14) calcium 9.5 mg/dL 8.7-10 .3 normal Not Available [facility] ([facility]) [address] [place], [address], 02/27/2025 07:07:02 02/27/2002/27/2025 COMP. METAB OLIC PANEL (14) protein, total 6.9 g/dL 6.0-8. 5 normal Not Available [facility] ([facility]) [address] [place], [address], 02/27/2025 07:07:02 02/27/2002/27/2025 COMP. METAB OLIC PANEL (14) albumin 4.5 g/dL 3.9-4. 9 normal Not Available [facility] ([facility]) [address] [place], [address], 02/27/2025 07:07:02 02/27/2002/27/2025 COMP. METAB OLIC PANEL (14) globulin, total 2.4 g/dL 1.5-4. 5 Not Available [facility] ([facility]) [address] [facility], [address], 02/27/2025 07:07:02 02/27/2002/27/2025 COMP. METAB OLIC PANEL (14) bilirubin, total 0.3 mg/dL 0.0-1. 2 normal Not Available [facility] ([facility]) [address] [place], [address], 02/27/2025 07:07:02 02/27/2002/27/2025 COMP. METAB OLIC PANEL (14) alkaline phosphatase 47 IU/L 44-121 normal Not Available [facility] ([facility]) [address] [place], [address], 02/27/2025 07:07:02 02/27/20 02/27/2025 COMP. METAB OLIC PANEL (14) AST (SGOT) 25 IU/L 0-40 normal Not Available [facility] ([facility]) [address] [facility] [place], [address], 02/27/2025 07:07:02 02/27/20 25 02/27/2025 COMP. METAB OLIC PANEL (14) ALT (SGPT) 16 IU/L 0-32 normal Not Available [facility] ([facility]) [address] [facility] [place], [address], 02/27/2025 07:07:02 02/27/20 25 02/27/2025 LIPID PANEL cholesterol, total 138 mg/dL 100-19 9 normal Not Available [facility] ([facility]) [address] [place], [address], 02/27/2025 07:07:03 02/27/20 25 02/27/2025 LIPID PANEL triglyceride s 122 mg/dL 0-149 normal Not Available [facility] ([facility]) [address] [place], [address], 02/27/2025 07:07:03 02/27/20 25 02/27/2025 LIPID PANEL HDL cholesterol 49 mg/dL >39 normal Not Available [facility]) [address] [place], [address], 02/27/2025 07:07:03 02/27/20 25 02/27/2025 LIPID PANEL VLDL cholesterol shari 22 mg/dL 5-40 Not Available [facility] ([facility]) [address] [place], [address], 02/27/2025 07:07:03 02/27/20 25 02/27/2025 LIPID PANEL LDL chol calc ([facility]) 67 mg/dL 0-99 Not Available [facility] ([facility]) [address] [place], [address], 02/27/2025 07:07:03 02/27/2002/27/2025 LIPID PANEL LDL 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 6 above high normal Predi abete s: 5.7 - 6.4 Diabe adriana: >6.4 Glyce sonam contr ol for adult s with diabe adriana: <7.0 Not Available [facility] ([facility]) [address] [facility], [place], [address], 02/27/2025 07:07:03 01/03/20 24 01/01/2024 DEXA, verte bral fract ure asses sment No observ ation record ed. [facility] [address] [place], [address], 01/06/2024 11:41:39 01/03/20 24 01/01/2024 MAMMO , scree misa, digit al, bilat eral No observ ation record ed. [facility] (Central Scheduling) [address] [place], [address], 01/06/2024 11:41:39 01/24/20 24 01/21/2024 LDCT, chest , for lung cance r scree misa No observ ation record ed. [facility] (Medical Records) [address] [place], [address], 01/30/2024 08:12:52 02/24/20 24 02/24/2024 cardi ac stres s test No observ ation record ed. [facility] [address], [place], [address], 02/24/2024 16:17:35 02/24/20 24 02/24/2024 NM, myoca rdial perfu shy scan, w/ stres s No observ ation record ed. [facility] [address], [place], [place], [address], 02/24/2024 16:16:59 02/25/2002/24/2024 US, doppl er echoc ardio gram No observ ation record ed. [facility] [address], [place], [place], [address], 02/25/2024 14:50:04 05/06/2005/04/2025 MAMMO , scree misa, digit al, bilat eral No observ ation record ed. [facility] [address], [place], [place], [address], 05/12/2025 11:49:15 07/07/20 25 07/07/2025 XR, wrist , 3 or more view No observ ation record ed. [facility] (Central Scheduling) [address] [place], [address], 07/12/2025 08:46:26 07/07/20 25 07/07/2025 XR, wrist , 3 or more view No observ ation record ed. [facility] (Central Scheduling) [address] [place], [address], 07/12/2025 08:46:26 Result Notes None recorded. Problems Name Problem SNOMED Code Status Onset Date Resolution Date Notes Provider Name and Address Organization Details Recorded Time Asthma 787634833 Active 2017 Lavinia Pittman APRN [address], [place], [address], [place] - [facility] 16:54:32 Chronic obstructive pulmonary disease 84556575 Active 2017 Lavinia Pittamn APRN [address], [place], [address], [place] [facility] 3 16:54:18 Environmental allergy 975818460 Active 2017 Joy Heath null, [place] - [facility] 8 13:53:54 Menopausal syndrome 698150384 Active 2017 Joysneha Trancy null, [place] - [facility] 8 13:55:50 Osteoarthritis 472694445 Active 2017 Zariadottie Pittman APRN [address], [place], [address], [place] - [facility] 3 16:54:22 Scoliosis deformity of spine 283536375 Active 2017 Zariadottie Pittman APRN [address], [place], [address], [place] [facility] 3 16:54:24 Lyme disease 03904435 Active 2022 Margy Tanvi null, [place] - [facility] 3 09:52:59 Prediabetes 803670609 Active 2023 Zariadottie Pittman APRN [address], [place], [address], [place] - [facility] 4 11:28:12 Hyperlipidemia 76892918 Active 2023 Zariadeweyroel AgrawalDINAH gee [address], [place], [address], [place] - [facility] 4 11:29:28 Problem Notes None recorded. Procedures Surgical History Date Name Laterality Status Provider Name and Address Organization Details Recorded Time 5 Date of Last Mammogram completed Margy Natalies [place] - [facility] 05/06/2025 15:26:47 5 Advance Care Planning completed Margy Stears [place] - [facility] 02/26/2025 10:09:09 5 Functional Status Assessed completed Margy Stears [place] [facility] 02/26/2025 10:09:09 5 surgery of cataract of right eye completed Margy Stears [place] [facility] 02/26/2025 10:42:53 4 Jordan Bandage Application completed Lavinia Pittman APRN [address], [place], [address], [place] [facility] 01/07/2024 13:36:20 4 Advance Care Planning completed Margy Tinajero [place] [facility] 12/23/2023 10:50:05 4 Functional Status Assessed completed Margy Tinajero [place] [facility] 12/23/2023 10:50:05 5 Cataract Surgery completed Joy ESPINO - [facility] 04/17/2018 14:07:22 8 completed Joy ESPINO - [facility] 2017 13:56:18 colonoscopy completed Margy Tinajero [place] - [facility] 12/23/2023 10:59:31 Imaging Results None recorded. Procedure Notes None recorded. Medical Equipment None Reported. Allergies Allergen ID Allergen Name Allergen Category Reaction Reaction Severity Criticality Documentation Date Start Date Code Code System Note Provider Name and Address Organization Details Recorded Time 829920 lactulose medicatio n Not available Not available Not available 12/18/2022 6218 RxNorm Margy Tinajero null, [place] - [facility] 3 16:35:10 Medications Name [...] [Score] - Reported Heart rate Oxygen saturation Systolic And Diastolic Provider Name and Address Organization Details Last Updated DateTime 4 167.01 cm 25.4 kg/m2 49354.4 1 g 18 /min 0 85 /min 95 % 136/80 mm[Hg] Mara Cueva [place] - [facility] 4 09:21:27 Date Recorded Body height Body mass index (BMI) Body weight Body temperature Respiratory rate Heart rate Oxygen saturation Systolic And Diastolic Provider Name and Address Organization Details Last Updated DateTime 4 167.01 cm 25 kg/m2 38544.2 2 g 97.9 [degF] 18 /min 74 /min 95 % 152/84 mm[Hg] Margy Estradas [place] - [facility] 4 10:54:06 Date Recorded Body height Body mass index (BMI) Body weight Body temperature Heart rate Oxygen saturation Respiratory rate Pain severity - 0-10 verbal numeric rating [Score] - Reported Systolic And Diastolic Provider Name and Address Organization Details Last Updated DateTime 4 167.01 cm 24.9 kg/m2 28966.6 3 g 97 [degF] 84 /min 96 % 18 /min 0 160/90 mm[Hg] Mara Cueva [place] - [facility] 4 13:18:28 Date Recorded Body height Respiratory rate Body mass index (BMI) Body weight Heart rate Oxygen saturation Body temperature Systolic And Diastolic Provider Name and Address Organization Details Last Updated DateTime 4 167.01 cm 18 /min 25.2 kg/m2 03733.8 2 g 78 /min 96 % 97.6 [degF] 164/86 mm[Hg] Margy Estradas [place] - [facility] 4 09:53:18 Date Recorded Body height Body mass index (BMI) Body weight Heart rate Oxygen saturation Respiratory rate Body temperature Systolic And Diastolic Provider Name and Address Organization Details Last Updated DateTime 5 167.01 cm 24.2 kg/m2 26110.2 6 g 72 /min 97 % 18 /min 97.9 [degF] 136/82 mm[Hg] Margy Tinajero [facility] 5 10:38:56 Social History Question Answer Notes LastModified by Organizat ion Details LastModified Time Tobacco Smoking Status Current Every Day Smoker Joy dubois, [place] - [facility] 04/17/2018 14:01:24 Do You Have [...] Or The Highest Degree You Have Received? [id number] Information not available 04/17/2018 How Many Days [...] Like Food, Housing, Medical Care, And Heating? [id number] Information not available 04/17/2018 What Is The Fluoride Status Of Your Home? Unknown Information not available 12/18/2022 Hard Of Hearing Or Deaf In One Or Both Ears? No Information not available 04/17/2018 Legally Blind In One Or Both Eyes? No Information not available 04/17/2018 Live Alone Or With Others? Alone Information not available 04/17/2018 Do You Have A Medical Power Of Pension Consultant? 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 No Information not available 04/17/2018 What is your exercise level? Occasional Information not available 04/17/2018 Mental Status Question Answer Note LastModified by Organ[employer]at [employer] Details LastModified Time Do you feel stressed (tense, restless, nervous, or anxious, or unable to sleep at night)? [id number] Information not available 04/17/2018 Do you have [...] of Last Colonoscopy Date of Last Mammogram 05/04/2025 Most Recent Bone Density Menses Monthly N Date of Last Pap Smear Most Recent Mammogram LMP Unknown 07/15/2007 Obstetrics History GPAL:G 3 P 3 0 0 3 Type Value Full Term 3 Living 3 Total 3 Immunizations Vaccine Type Date Status Note Provider Name and Address Organization Details Recorded Time Td(adult) unspecified formulation 004 completed Not Available [facility] 02/26/2025 10:00:09 Tdap 014 completed Not Available [facility] 02/26/2025 10:00:09 zoster recombinant 019 completed Not Available [facility] 02/26/2025 10:00:09 COVID-19 vaccine, vector-nr, rS-Ad26, PF, 0.5 mL 021 completed Not Available [facility] 02/26/2025 10:00:09 Pneumococcal conjugate PCV20, polysaccharide [id number] conjugate, adjuvant, PF 025 cancelled patient objection Lavinia Pittman APRN [address], [place], [address], [place] [facility] 02/26/2025 11:02:27 zoster recombinant 025 cancelled patient objection Lavinia Pittman APRN [address], [place], [address], [place] [facility] 02/26/2025 11:02:27 Tdap 025 cancelled patient objection Lavinia Pittman APRN [address], [place], [address], [place] [facility] 02/26/2025 11:02:27 Influenza, split virus, quadrivalent, preservative 018 completed Not Available [facility] 08/01/2019 03:55:23 HepB-CpG 023 completed Margy Stears null, [place] - [facility] 09/23/2023 11:32:21 HepB-CpG 023 completed Margy Stears [place] [facility] 09/23/2023 11:32:21 Influenza, split virus, quadrivalent, PF 023 completed Margy Stears [place] [facility] 09/23/2023 11:32:21 Past Encounters Encounter ID Performer Location Encounter Start Date Encounter Closed Date Diagnosis/Indication Diagnosis SNOMED-CT Code Diagnosis ICD10 Code Diagnosis IMO Codes Diagnosis Note [id number] Nina Garcia [facility] [address] [place] [address] 04/17/2018 13:03:24 04/17/2018 14:52:27 Influenza vaccine needed 0358051058 106 Z23 Chronic ob structive pulmonary disease 13667355 J44.9 Osteoarthritis 411951164 M19.90 [id number] Lavinia Pittman [employer]IS[employer]APH [employer]ERV[employer] [address] [address] 12/18/2022 15:53:03 12/18/2022 17:11:17 Tick bite 32700627 W57.XXXA hold choles med while on antibiotic Insect bite reaction 402 844925 T63.481A [id number] Laivnia Pittman [employer]APH [employer] [address] [address] 09/23/2023 11:27:20 09/23/2023 11:45:53 Contusion of head 372420650 S00.93XA monitor for any changesif any symptoms go to ed asapice [id number] Lavinia Pittman [address] [address] 12/16/2023 09:10:46 12/16/2023 09:52:33 Abscess 876625604 L02.[address] gandhi in [place]- he will see pt- sent pt over for gregory [id number] Lavinia Pittman [address] [address] 12/23/2023 10:23:43 12/23/2023 11:46:36 Adult health examination 624867986 Z00.00 Depression screening 171 730546 Z13.31 A depression screening was completed via a standardiz ed screening tool. 5 minutes were spent discussing depression screening results and risk factors. Examinatio n of blood pressure 156657816 Z01.30 Diet education 69657131 Z71.3 Counseling 586417974 Z71 .82 Exercise counseling . Patient encouraged to exercise 30 minutes 5 days a week. [address] [facility] ed risk for falls 029792121 Z91.81 STEADI FAST screening score of __2___. Advance care planning 71 2786368 Z71.89 Finding of body mass index 000285728 Z68.25 25 Screening mammography 24 874103 Z12.31 Screening for malignant neoplasm of respiratory tract 747263056 Z12.2 Nicotine d ependence with current use 071990161 F17.210 Current tobacco user Former hea vy tobacco smoker 9029249810 68800 Z87.891 smokes daily Screening for malignant neoplasm of colon 050945896 Z12.11 Postmenopausal state 764 56114 Z78.0 Z13.820 Z01.419 HIV screen ing declined 9733809791 68441 Z53.20 Hepatitis C screening 41 5603481 Z11.59 Chronic ob structive pulmonary disease 87725227 J44.9 Osteoarthritis 520419451 M19.90 Scoliosis deformity of spine 756643144 M41.9 Prediabetes 358895602 R7 3.03 Hyperlipidemia 56553166 E78.5 History of nicotine dependence 4331540969 99233450 Z87.984 [id number] Lavinia Pittman SEIS[employer]GRAPH OBS[employer] [address] [address] 01/07/2024 13:03:20 01/07/2024 13:35:30 Osteoarthritis 008835237 M19.90 pt wants to wait on xray and work up at this timeace wrap appliedele vateicensa id/tylenol for painreturn if symptoms worsen or do not improve [id number] Lavinia Pittman SEISMOGRAPH OBS[employer] [address] [address] 02/04/2024 09:36:53 02/04/2024 10:24:12 Contact dermatitis 31438267 L25.9 benadryl otcdo not take that brand again. go back to the original brandif symptoms worsen or no improvemen t return [id number] Lavinia Pittman [address] [address] 02/26/2025 09:45:55 02/26/2025 11:21:14 Adult health examination 483402402 Z00.00 Depression screening 171 825130 Z13.31 A depression screening was completed via a standardiz ed screening tool. 5 minutes were spent discussing depression screening results and risk factors. Examinatio n of blood pressure 121649673 Z01.30 Diet education 50447354 Z71.3 Counseling 689525323 Z71 .82 Exercise counseling . Patient encouraged to exercise 30 minutes 5 days a week. [address] [facility] ed risk for falls 254871932 Z91.81 STEADI FAST screening score of ___0__. Advance care planning 71 8067464 Z71.89 Menopausal syndrome 1237 57638 N95.9 med refilled Hyperlipidemia 56272241 E78.5 labsmed refilled Normal weight 42172706 Z 68.24 8564438288 24.2 Pneumococc al vaccination declined 580739801 Z28.21 75825518 Lung cance r screening declined 7781371284 8111258 Z53.[address] vaccination declined 7811674562 102 Z28.21 9640965253 Tetanus di phtheria and acellular pertussis vaccination declined 9517022108 5419699 Z28.21 4760968251 Prediabetes 197568871 R7 3.03 labs Screening mammography 24 835464 Z12.31 7707936 Health Concerns Section Related Observation LastModified by Organization Detai ls LastModified Time None Recorded Concern Status LastModified by Organization Details LastModified Time None Recorded Advance Directives Directive N: Payers Insurance Date Sequence Insurance Name Policy Number Policy Oneill Covered Member ID Oneill Member ID Guarantor Name 02/23/2025 [place] Marilu Torres [id number] Marilu Torres 04/28/2025 1 [place]MED[place]AC[place] [id number] Marilu Torres [id number] Marilu Torres 01/07/2024 2 () Marilu Torres [id number] Marilu Torres Notes Date Note Type Note Provider Name and Address Organization Details Recorded Time 12/16/2023 text/html ROS as noted in the HPI 63 yr old female presents for a boil to left lower eye.that keeps getting bigger and sore Lavinia Pittman, SEISMOGRAPH OBSERVER [address], [place], [address], [place] [facility] 12/16/2023 09:55:55 12/23/2023 text/html [...] today for her initial medicare annual wellness Lavinia Pittman APRN [address], [place], [address], [employer] - [facility] 01/09/2024 13:40:41 01/07/2024 text/html ROS as noted in the HPI 63 yr old female presents for right knee pain and swelling, no injury. Lavinia Pittman APRN [address], [place], [address], [employer] - [facility] 01/07/2024 13:36:59 02/04/2024 text/html ROS as noted in the HPI 63 year old female who presents to the office with concerns ofrash on arms after taking different fish oil supplementdiscuss testing results. pt states she sees cardiology 02/10 and pulmonology 02/17. pt states she wants to wait on colonoscopy at this time until all her other work up is complete Lavinia Pittman, SEISMOGRAPH OBSERVER [address], [place], [address], [place] [facility] 02/04/2024 10:29:44 02/26/2025 text/html Medicare [...] refils on paroxetine and simvastatin Lavinia Pittman, DINAH [address], [place], [address], [place] [facility] 02/26/2025 11:04:11 OBGyn Episode No OBEpisode recorded.
--- NOTE | 2025-07-12 09:49 | XR_ITS ---
FINAL REPORT CLINICAL HISTORY: Right Wrist Fx FINDINGS: AP, oblique, and lateral views of the right wrist were obtained. There is no prior exam for comparison. Plaster cast obscures detail. There is a comminuted, likely intra-articular fracture of the distal radius. There is angulation of the distal fragment. Ulnar styloid process fracture is noted. There is multi joint degenerative disease. Diffuse soft tissue edema is noted over the dorsum of the hand. IMPRESSION: Fractures as above. Reviewed, Interpreted and Dictated by Monica Guerra MD Transcribed by Yasmine Toribio Authenticated and [facility]
== END 2025-07-12 23:59 ==
LOC: RAD 09:27
PROVIDERS: PCP Nurse Practitioner Family; Visit Provider Physician Assistant Surgical
DX: S52.611D Displaced fracture of right ulna styloid process, subsequent encounter for closed fracture with routine healing (principal); S52.571D Other intraarticular fracture of lower end of right radius, subsequent encounter for closed fracture with routine healing; X58.XXXD Exposure to other specified factors, subsequent encounter; M19.031 Primary osteoarthritis, right wrist
CPT/HCPCS: 73110

== ENCOUNTER 2025-07-13 10:50 | Outpatient (CLI) | payer MEDICARE, SELFPAY ==
[2025-07-13 08:30] VITALS: BMI 24.2
--- NOTE | 2025-07-13 10:59 | XR_ITS ---
FINAL REPORT CLINICAL HISTORY: pre-op FINDINGS: 2 views of the chest were obtained . The heart is normal in size. The mediastinum is within normal limits. The lungs are clear. There is no pneumothorax. Osseous structures are unremarkable. IMPRESSION: No acute cardiopulmonary process. Reviewed, Interpreted and Dictated by Monica Guerra MD Transcribed by Carolyn Ireland Authenticated and [facility]
--- NOTE | 2025-07-13 11:19 | ECG_ITS ---
APPROVED REPORT Exam: Resting ECG HR:84 bpm ECG Measurements Heart Rate 84 AXES CO 169 P 87 QRSd 87 QRS 83 QT 355 T 81 QTc 396 Conclusion SINUS RHYTHM bi-atrial abnormality BORDERLINE ECG UNCONFIRMED REPORT Electronically signed by : Jesús Mejia MD 07/14/2025 08:32:48
[2025-07-13 11:21] LABS: Hematocrit 41.0 % (37.0-47.0); Hemoglobin 13.9 g/dL (12.2-16.2); Immature Granulocytes % 0.4 %; Mean Corpuscular HGB Conc 33.9 g/dL (31.8-35.4); Mean Corpuscular Hemoglobin 29.5 pg (27.0-31.2); Mean Corpuscular Volume 87.0 fl (81-99); Nucleated Red Blood Cells % 0 %; Platelet Count 170 K/mm3 (142-424); Red Blood Count 4.71 M/mm3 (4.20-5.40); Red Cell Distribution Width-SD 38.6 fL; White Blood Count 5.6 K/mm3 (4.8-10.8)
[2025-07-13 11:29] LABS: Chloride 96 mmol/L (98-107); Potassium 4.4 mmoL/L (3.5-5.1); Sodium 133 mmol/L (136-145)
[2025-07-13 11:32] LABS: Anion Gap 9.4 mEq/L (5-15); Blood Urea Nitrogen 8 mg/dl (7-17); Carbon Dioxide 32 mmol/L (22.0-30.0); Creatinine Clearance Estimated 59 mL/min (50-200); Creatinine,Serum 0.70 mg/dl (0.52-1.04); Estimated Glomerular Filt Rate 84 ml/min (>60); GFR (African American) 101 ML/MIN (>60); Glucose 96 mg/dl (74-100)
[2025-07-13 11:33] LABS: Calcium 9.4 mg/dl (8.4-10.2)
== END 2025-07-13 23:59 | disposition home or self-care (01) ==
LOC: PREOP 10:51
PROVIDERS: PCP Nurse Practitioner Family; Visit Provider Orthopaedic Surgery
DX: Z01.810 Encounter for preprocedural cardiovascular examination (principal); Z01.811 Encounter for preprocedural respiratory examination; Z01.812 Encounter for preprocedural laboratory examination; R94.31 Abnormal electrocardiogram [ECG] [EKG]
CPT/HCPCS: 71046; 80048; 85025; 93005

== ENCOUNTER 2025-07-14 09:44 | Day surgery (SDC) | payer MEDICARE, SELFPAY ==
[2025-07-13 13:25] VITALS: BMI 24.2
[2025-07-14] VITALS (10 sets, daily range): BP systolic 125–185; BP diastolic 65–89; PULSE 68–93; RESP 12–20; TEMP 36.3–36.4; O2SAT 90–95; BMI 24.2
[2025-07-14] MEDS: LACTATED RINGERS 1000ML 1,000 ML 25 ML IV (10:33)
--- NOTE | 2025-07-14 12:22 | XR_ITS ---
FINAL REPORT CLINICAL HISTORY: ORIF RIGHT WRIST > FLUORO TIME 0:34 .83 mGy COMPARISON: None FINDINGS: FLUOROSCOPY LESS THAN 1 HOUR HISTORY: FINDINGS: Fluoroscopic guidance was provided for ORIF right wrist. 3 spot films were obtained. 34 seconds of fluoroscopy time were used, with a dosage of 0.83 mGy. IMPRESSION: As above. Reviewed, Interpreted and Dictated by Monica Guerra MD Transcribed by Lili Villanueva Authenticated and [facility]
--- NOTE | 2025-07-14 12:28 | EXP.OP.NOTE ---
Date of procedure: 07/14/25 Pre-op Diagnosis:: Right distal radius intra-articular three-part fracture Post-op Diagnosis:: Same Procedure performed:: Open reduction internal fixation right distal radius fracture intra-articular three-part with volar plating Surgeon:: Ivan Cross DO [employer] Supervisor(s):: Kehinde FRANCISCO MANAGED SERVICES SALES CONSULTANT:: Martita Goodwin Anesthesia: GETA and regional Estimated blood loss (mL): 0 Clinical Note:: [employer] volar distal radius plate Operative findings:: See dictation Operative note:: Patient identified preoperatively. Right wrist marked with yes my initials. Underwent a block with anesthesia. Then taken the operating room placed upon operating bed. General anesthesia administered airway secured. Right upper extremity prepped and draped normal sterile fashion. Once prepped and draped final operative timeout performed to identify proper patient procedure and extremity. Everyone involved in the case agreed. There is no counter indications beginning. Did receive preoperative antibiotics. Marking pen was used to neeta planned incision of the volar wrist. The radial artery was marked for protection throughout the case. Esmarch was used to exsanguinate the extremity pneumatic tourniquet inflated 250 mmHg. Skin knife was used incise the skin dissection was taken down the FCR tendon sheath the FCR tendon sheath was opened the FCR tendon was retracted radially throughout the procedure protect the radial artery. Floor of the FCR is open. Fracture hematoma was present and pronator quadratus muscle was torn. This was exposed to the fracture bed. Fracture hematoma evacuated. Reduction maneuver performed under direct visualization of the fracture with traction and volar pressure. Is able to get a good reduction to neutral. X-ray was brought into identify reduction. Narrow plate selected from [employer] volar wrist plate placed on the radius and temporarily held with K wires. Initial cortical screw was placed in the oblong hole of the plate followed by sequential distal locking screws. Once distal locking screws were in place x-rays were taken AP and lateral view to show proper reduction. Locking screw was then placed the most proximal hole cortical screw removed and replaced with an additional locking screw shaft. X-rays taken AP and lateral views and saved. Irrigation wound performed. Deep layers closed with 3-0 Vicryl subcutaneous 3-0 Vicryl 3-0 nylon the skin for closure followed by sterile dressing and well-padded volar splint. Patient placed in sling taken recovery in stable condition. Condition: stable Disposition: PACU Complications:: None apparent
--- NOTE | 2025-07-14 12:39 | EXP.ANES.I ---
[facility] Anesthesia Record Part I Anesthesia Record I Intake, IV Amount: 1,000 Hydration: Adequate Estimated blood loss (mL): 0 Urine output (mL): 0 Blood Pressure: 144/75 SaO2: 94 Pulse Rate: 93 Airway Patency: Patent Respiratory Rate: 12 Temperature: 97.5 F Patient is:: Awake and Stable Stable to PACU at:: 12:40
--- NOTE | 2025-07-14 13:13 | SUR.PHASEI ---
IS given to pt. IS @ rust 1,000cc's
--- NOTE | 2025-07-16 07:39 | P.PNANES_ITS ---
[facility] Anesthesia Record Part II Anesthesia Record Part II Discharge Time: 13:14 Destination: Surgical Day Care (OP Surgery) PACU nurse assessment reviewed?: Yes Patient Condition:: Good Anesthesia Complications:: None Swallowing reflex intact?: Yes Airway Patency: Patent Cyanosis?: No Blood Pressure: 171/75 SaO2: 95 Respiratory Rate: 18 Pulse Rate: 70 Temperature: 97.4 F Mental Status: Alert & Oriented Pain level:: 0 Nausea and/or vomitting:: None Intake, IV Amount: 0 Hydration: Adequate
[2025-07-16 07:40] VITALS: BP 171/75; PULSE 70; RESP 18; TEMP 36.3; O2SAT 95
== END 2025-07-14 14:00 | disposition home or self-care (01) ==
PROVIDERS: PCP Nurse Practitioner Family; Visit Provider Orthopaedic Surgery
PROC: (CPT 25609; principal; 2025-07-14 11:45)
DX: S52.571A Other intraarticular fracture of lower end of right radius, initial encounter for closed fracture (principal); W19.XXXA Unspecified fall, initial encounter; J44.9 Chronic obstructive pulmonary disease, unspecified; E78.5 Hyperlipidemia, unspecified; F17.210 Nicotine dependence, cigarettes, uncomplicated; R59.0 Localized enlarged lymph nodes; Q24.8 Other specified congenital malformations of heart; Z79.899 Other long term (current) drug therapy
CPT/HCPCS: 25609; 64415; C1713; 73100; 76000; J1100; J2003; J2250; J2405; J2704; J3010; J7120